=== PATIENT | male | born 1955 | race Caucasian/White ===

== ENCOUNTER → 2018-04-01 | Outpatient (CLI) | payer BC, OTHER ==
[~2018-04-01] MED LIST: CONTRAST GIVEN. MC PRN; IOHEXOL 300 MG/ML 50 ML VIAL. IJ ONE; LIDOCAINE WITH 8.4% SOD BICARB 3 ML DISP.SYRIN. INJ ONE
[2018-04-01 12:25] VITALS: BP 143/73
--- NOTE | 2018-04-01 13:14 | RAD ---
Cervical myelogram, 04/01/2018: History: Cervical radiculopathy Under local anesthesia, aseptic conditions and fluoroscopic guidance a lumbar puncture was performed at the mid L3 level utilizing a 25-gauge Pascale spinal needle. Good clear CSF flow was obtained following which 11 cc of Omnipaque 300 was injected into the thecal sac. The spinal needle was then removed and hemostasis obtained. Appropriate digital imaging was performed with with 12 fluoroscopic spot images recorded. The patient tolerated the procedure well and was sent to CT in good condition. The following findings were delineated on the myelogram: 1. Spinal stimulator leads extend into the posterior aspect of the cervical spinal canal to the left of midline. 2. There are mild anterior and posterior extradural defects from the C3-4 down to the C6-7 levels producing borderline to mild central spinal stenosis at all of these levels. 3. There are mild lateral extradural defects at C6-7, more so on the left. CT of the cervical spine-post myelogram, 04/01/2018: Multidetector CT imaging was performed with multiplanar reconstructions produced. Artifacts arising from the spinal stimulator leads partially degrade image quality. 1. No fracture or dislocation is identified. No destructive bony lesion is seen. There are moderate degenerative changes involving scattered facet joints bilaterally. 2. At C2-3 the central spinal canal and neural foramina are well maintained. The upper end of a spinal stimulator lead lies along the left posterolateral aspect of the thecal sac. 2. At C3-4 there is moderate disc space narrowing with moderate posterior marginal spurring. The thecal sac measures 11 mm in AP dimension at the midline. The spurring is causing moderate bilateral foraminal stenosis, worse on the right. 3. At C4-5 there is also moderate disc space narrowing with moderate marginal spurring. There is borderline narrowing of the thecal sac. Its posterior margin is partially obscured by the stimulator related artifacts, however, the thecal sac measures approximately 10 mm in AP dimension at the midline. There is mild to moderate bilateral foraminal narrowing due to the spurring. 4. At C5-6 there is moderate disc space narrowing with moderate marginal spurring. There appears to be mild narrowing of the thecal sac, although again, its margins are not clearly defined due to artifacts. There is mild to moderate bilateral foraminal encroachment due to spurring. 5. At C6-7 there is also moderate disc space narrowing with moderate posterior spurring. There is narrowing of the thecal sac which measures approximately 8-9 mm in AP dimension at the midline. The spurring is causing moderate right foraminal encroachment and severe left foraminal encroachment at this level. 6. At C7-T1 the central spinal canal and neural foramina appear well maintained. IMPRESSION: 1. Spinal stimulator leads in place extending into the upper cervical spinal canal on the left. 2. Moderate multilevel degenerative change as described above, with mild central spinal stenosis at C5-6 and C6-7 as well as moderate foraminal encroachment at multiple levels, greatest at C6-7. PQRS Compliance Statement: One or more of the following individualized dose reduction techniques were utilized for this examination: 1. Automated exposure control 2. Adjustment of the mA and/or kV according to patient size 3. Use of iterative reconstruction technique
== END | disposition home or self-care (01) ==
LOC: RAD 08:59
PROVIDERS: ATTEND Neurological Surgery
DX: M48.02 Spinal stenosis, cervical region (principal); M47.892 Other spondylosis, cervical region
CPT/HCPCS: 72125; 72240; Q9967

== ENCOUNTER 2018-04-25 06:59 | Observation (INO) | payer BC, OTHER ==
--- NOTE | 2018-04-24 15:20 | PREOP HP ---
DATE OF SERVICE: 04/25/2018 HISTORY OF PRESENT ILLNESS: The patient is a pleasant 63-year-old who notices right-sided neck pain and right greater than left shoulder, arm and hand pain. He notes weakness and numbness in his arms and hands bilaterally. The problem has been present for years, slowly worsening. He relates his pain as a 9/10. Moving his arms or lifting his arms markedly increases pain. He is using extended release morphine as well as Mcadoo. He has had epidural steroid injections and FNA, which helped for a short time. Physical therapy has been done without significant help. I studied him with a myelogram and post-myelogram CT scan. PAST MEDICAL HISTORY: Arthritis, cancer, chest pain, headaches, head or neck injury, hypertension, parathyroid disease, rheumatoid arthritis, stomach/intestinal disease, thyroid disease, diabetes. PAST SURGICAL HISTORY: Hernia repair, deviated septum, cardiac catheterization. FAMILY HISTORY: Cancer, diabetes, and heart problems. SOCIAL HISTORY: Employed. . Never exercises. Denies substance abuse. Current tobacco use. Drinks alcohol 1-2 times per year. ALLERGIES: No known drug allergies. CURRENT MEDICATIONS: Acetaminophen, atorvastatin, aspirin, cyclobenzaprine, diazepam, Mcadoo, insulin, levothyroxine, metformin, morphine, nitroglycerin, omeprazole, pregabalin, sertraline, tamsulosin, Toujeo Solostar, triamcinolone acetonide. REVIEW OF SYSTEMS: A 12-point review of systems was obtained and is noncontributory except that mentioned above. PHYSICAL EXAMINATION: NEUROSURGERY EXAMINATION: GENERAL APPEARANCE: Alert, pleasant, no acute distress. HEAD: Normocephalic and atraumatic. NECK AND THYROID: Gscy-vr-ycqtmpls tenderness with palpation of posterior cervical region. SKIN: Warm and dry. MUSCULOSKELETAL: Cervical paraspinal muscle bulk is normal, restricted range of motion of the cervical spine. Normal range of motion of the upper extremities bilaterally. EXTREMITIES: No clubbing, cyanosis or edema. NEUROLOGIC: Alert and oriented x 3, normal recent and remote memory. Strength 5/5 in bilateral upper and lower extremities, sensory was intact to light touch in the upper and lower extremities. Reflexes are present and symmetric in the upper and lower extremities bilaterally, normal gait. IMAGING: Reviewed. I reviewed a cervical myelogram and post-myelogram CT scan and compared this with a cervical MRI scan. There are a number of abnormalities at C5-C6. There is moderate right and severe left neural foraminal narrowing. At C6-C7, there is moderate right foraminal and severe left foraminal narrowing. At C3-C4, there is moderate bilateral foraminal narrowing, worse on the right side. ASSESSMENT: Other spondylosis with radiculopathy, cervical region. PLAN: The patient has multilevel disease. At this point, I feel the best course would be to focus on C5-C6 and C6-C7. I would perform a 2-level anterior cervical microdiskectomy and fusion at these levels. It may be that in the future, he will require surgery at C3-C4. I discussed with him the surgery and the risks involved including injury to the soft tissue structures of the neck, sequelae of injury to each. I spoke about the injury to esophagus as well as technique of the operation. I discussed the use of interbody fusion cages and plate. I spoke about the expected postoperative course. He understands. He would like to go ahead. We will make the arrangements. DIANE VELASQUEZ MD DR: NAYELY/nika JOB#: [id number] / [id number]
[~2018-04-25] VITALS: Ht 157.5 cm; Wt 129.3 kg
[2018-04-25] VITALS (10 sets, daily range): BP systolic 126–164; BP diastolic 62–90
[~2018-04-25 06:59] MED LIST changes: +ATORVASTATIN CA80 MG PO; +BACITRACIN 50,000 UNIT in IV NORMAL SALINE 1000ML BAG 1,000 ML IRR ONE; -CONTRAST GIVEN. MC PRN; +CYCL5TAB PO; +DESFLURANE 61 TO 120 MINUTES IH ONE; +DEXAMETHASONE SOD PHOS 20 MG/5 ML VIAL. ONE; +DIAZ5TAB4 PO; +GELATIN SPONGE SIZE 100. ONE; +HYDR-2762 PO; +INSU100V11 IJ; +INSU300I SQ; -IOHEXOL 300 MG/ML 50 ML VIAL. IJ ONE; +LEVO150T5 PO; -LIDOCAINE WITH 8.4% SOD BICARB 3 ML DISP.SYRIN. INJ ONE; +METF100010 PO; +MORP15TA PO; +OMEP40CA5 PO; +ONDANSETRON PF 4 MG/2 ML VIAL. ONE; +PHENYLEPHRINE 10 MG/ML VIAL. ONE; +PREG50CA PO; +PROPOFOL 0 ML IV ONE; +PROPOFOL 50 ML IV ONE; +QUET100T4 PO; +REMIFENTANIL 2 MG VIAL. IV ONE; +ROCURONIUM 50 MG/5 ML VIAL. ONE; +TAMS0.4C2 PO; +THROMBIN TOPICAL 20,000 UNIT SPRAY.SYRN KIT TP ONE; +TRIA80OI TP
[2018-04-25] MEDS ORDERED: PROCHLORPERAZINE 10 MG/2 ML VIAL. IV PRN (07:00)
[2018-04-25] MEDS ORDERED: LIDOCAINE 1% PF 2 ML VIAL. ID PRN (07:00)
[2018-04-25] MEDS ORDERED: BUPIVAC MPF-EPI 0.5%-1:200000 30 ML VIAL. INJ ONE (07:00)
[2018-04-25] MEDS ORDERED: ONDANSETRON PF 4 MG/2 ML VIAL. IV PRN ×2 (07:00→13:30)
[2018-04-25] MEDS ORDERED: MORPHINE SULFATE 2 MG/ML VIAL. IV PRN (07:00)
[2018-04-25] MEDS ORDERED: fentaNYL PF VIAL 100 MCG/2 ML VIAL IV PRN ×2 (07:00→13:30)
[2018-04-25] MEDS ORDERED: HYDROmorphone 2 MG/ML VIAL IV PRN (07:00)
[2018-04-25] MEDS ORDERED: INSU300I SQ (07:56)
[2018-04-25] MEDS ORDERED: INSU100C4 SQ (07:58)
[2018-04-25] MEDS: IV RINGERS,LACTATED 1000ML 1,000 ML IV SCH ×2 (08:00→13:51)
[2018-04-25] MEDS ORDERED: fentaNYL PF VIAL 100 MCG/2 ML VIAL ONE (08:30)
[2018-04-25] MEDS ORDERED: MIDAZOLAM HCL/PF 2 MG/2 ML VIAL. ONE (08:30)
[2018-04-25] MEDS ORDERED: ceFAZolin SODIUM 1 GM VIAL ONE ×2 (09:46)
[2018-04-25] MEDS ORDERED: MINERAL OIL/PETROLATUM,WHITE OPHTH OINT 3.5GM TUBE. ONE (10:00)
[2018-04-25] MEDS ORDERED: PROPOFOL 50 ML IV ONE ×2 (10:16→12:21)
[2018-04-25] MEDS ORDERED: PROPOFOL 20 ML IV ONE ×2 (10:16→12:52)
[2018-04-25] MEDS ORDERED: ePHEDrine PF IN SALINE 50 MG/5 ML DISP.SYRIN IV ONE (10:37)
[2018-04-25] MEDS ORDERED: REMIFENTANIL 1 MG VIAL. IV ONE ×2 (11:30→12:33)
[2018-04-25] MEDS ORDERED: DESFLURANE > 120 MINUTES IH ONE (12:55)
[2018-04-25] MEDS ORDERED: HYDROcodone/APAP 7.5/325MG 1 TAB TABLET PO PRN ×3 (13:15→13:30)
[2018-04-25] MEDS: POTASSIUM CL 20MEQ D5-0.45NACL 1,000 ML IV SCH (13:16)
[2018-04-25] MEDS ORDERED: MORPHINE SULFATE 4 MG/ML VIAL. ONE (13:22)
[2018-04-25] MEDS ORDERED: ACETAMINOPHEN 325 MG TABLET. PO PRN (13:30)
[2018-04-25] MEDS ORDERED: diphenhydrAMINE 50 MG/ML VIAL IV PRN (13:30)
[2018-04-25] MEDS ORDERED: CALCIUM CARBONATE 500 MG TAB.CHEW PO PRN (13:30)
[2018-04-25] MEDS ORDERED: MAG HYDROX/ALUMINUM HYD/SIMETH 30 ML ORAL.SUSP PO PRN (13:30)
[2018-04-25] MEDS ORDERED: diphenhydrAMINE HCL 25 MG CAPSULE PO PRN (13:30)
[2018-04-25] MEDS ORDERED: MAGNESIUM HYDROXIDE 2,400 MG/30 ML ORAL.SUSP. PO PRN (13:30)
[2018-04-25] MEDS ORDERED: 0.9 % SODIUM CHLORIDE 10 ML DISP.SYRIN. IV PRN (13:30)
[2018-04-25] MEDS: fentaNYL PF VIAL 100 MCG/2 ML VIAL IV PRN ×2 (13:42→14:13)
[2018-04-25] MEDS ORDERED: MORPHINE SULFATE 4 MG/ML VIAL. IM PRN (13:45)
[2018-04-25] MEDS ORDERED: MORPHINE SULFATE 4 MG/ML VIAL. IV PRN (14:00)
[2018-04-25] MEDS ORDERED: ceFAZolin SODIUM 1 GM in IV DEXTROSE 5% 50 ML IV SCH (14:00)
[2018-04-25] MEDS ORDERED: INSULIN GLARGINE 300 UNITS/3 ML INSULN.PEN. SQ SCH (15:00)
[2018-04-25] MEDS: PREGABALIN 50 MG CAPSULE PO SCH ×2 (16:46→21:42)
[2018-04-25] MEDS: ceFAZolin SODIUM IV Push 1 GM VIAL. IVP SCH (16:57)
[2018-04-25] MEDS: TRIAMCINOLONE ACETONIDE 0.1% TOPICAL OINTMENT 15GM TUBE. TP SCH (21:00)
[2018-04-25] MEDS ORDERED: TRIAMCINOLONE ACETONIDE 0.1% TOPICAL OINTMENT 15GM TUBE. TP SCH (21:00)
[2018-04-25] MEDS ORDERED: ATORVASTATIN CALCIUM 40 MG TABLET. PO SCH (21:00)
[2018-04-25] MEDS: CYCLOBENZAPRINE 10 MG TABLET. PO SCH (21:41)
[2018-04-25] MEDS: DOCUSATE SODIUM 100 MG CAPSULE. PO SCH (21:42)
[2018-04-25] MEDS: diazePAM 5 MG TABLET PO SCH (21:42)
[2018-04-25] MEDS: MORPHINE ER 15 MG TABLET.ER PO SCH (21:42)
[2018-04-26] MEDS: ceFAZolin SODIUM IV Push 1 GM VIAL. IVP SCH ×2 (01:00→07:49)
[2018-04-26] MEDS: POTASSIUM CL 20MEQ D5-0.45NACL 1,000 ML IV SCH (02:36)
[2018-04-26 06:23] VITALS: BP 127/69
[2018-04-26] MEDS ORDERED: LEVOTHYROXINE 150 MCG TABLET PO SCH (07:00)
[2018-04-26] MEDS ORDERED: PANTOPRAZOLE 40 MG TABLET.DR. PO SCH (07:30)
[2018-04-26] MEDS: CYCLOBENZAPRINE 10 MG TABLET. PO SCH (07:47)
[2018-04-26] MEDS: diazePAM 5 MG TABLET PO SCH (07:47)
[2018-04-26] MEDS: PREGABALIN 50 MG CAPSULE PO SCH (07:47)
[2018-04-26] MEDS: DOCUSATE SODIUM 100 MG CAPSULE. PO SCH (07:47)
[2018-04-26] MEDS: MORPHINE ER 15 MG TABLET.ER PO SCH (07:48)
[2018-04-26] MEDS ORDERED: INSULIN GLARGINE 300 UNITS/3 ML INSULN.PEN. SQ SCH (08:00)
[2018-04-26] MEDS ORDERED: INSULIN LISPRO 300 UNITS/3 ML INSULN.PEN. SQ SCH (08:00)
[2018-04-26] MEDS ORDERED: metFORMIN XR 500 MG TAB.ER.24H PO SCH (08:00)
[2018-04-26] MEDS: TRIAMCINOLONE ACETONIDE 0.1% TOPICAL OINTMENT 15GM TUBE. TP SCH (08:07)
[2018-04-26] MEDS ORDERED: TAMSULOSIN 0.4 MG CAP.ER.24H. PO SCH (09:00)
--- NOTE | 2018-04-26 09:39 | DISCH ---
DISCHARGE INSTRUCTIONS Condition on Discharge Condition on Discharge: Stable Activity After Discharge Activity Instructions for Disc: Activity as tolerated, Avoid exertion Other activity instructions: no driving for a week Bathing Instructions: Shower-keep dressing dry Lifting Instructions after Dis: No heavy lifting, No pulling or pushing, Do not lift >10 pounds Diet after Discharge Additional Diet Restrictions: resume home diet Wound Incision Care Wound/Incision Care: Ice to area for comfort Other wound/incision instructi: may remove dressing tomorrow if dry then may shower- no soaking Contacting the after DC Call your doctor for: Concerns you may have Follow-Up Follow up with: Dr. Velasquez's nurse in 2 weeks [phone] DIANE VELASQUEZ MD Apr 26, 2018 09:39
--- NOTE | 2018-04-26 09:52 | PDOC ---
PROGRESS NOTES Subjective Subjective POD #1 up in chair significant improvement in shoulder and arm symptoms wants to go home Objective Objective Vital Signs Date Time Temp Pulse Resp B/P (MAP) Pulse Ox O2 Delivery O2 Flow Rate FiO2 04/26/18 07:50 Room Air 04/26/18 06:23 98.0 70 20 127/69 (88) 95 98.0 04/25/18 21:42 2.0 Intake and Output 04/26/18 07:00 Intake Total 850 ml Output Total 25 ml Balance 825 ml Intake Oral 800 ml IV Total 50 ml Output Estimated Blood Loss 25 ml # Voids 8 Physical Exam General: Alert, Oriented X3, Cooperative, No acute distress, Other (Voice clear ) MUSCULOSKELETAL: Other (SON) Skin: Other (dressing dry and intact, soft collar on) Plan Plan of Care dc home f/u 2 weeks Comment Review of Relevant I have reviewed the following items carlita (where applicable) has been applied. Labs Laboratory Tests Test 04/25/18 07:47 04/25/18 13:37 04/25/18 16:48 04/25/18 21:38 Glucose (Fingerstick) 154 mg/dL (70-99) 147 mg/dL (70-99) 146 mg/dL (70-99) 158 mg/dL (70-99) Test 04/26/18 06:03 Glucose (Fingerstick) 139 mg/dL (70-99) Laboratory Tests Test 04/25/18 13:37 04/25/18 16:48 04/25/18 21:38 04/26/18 06:03 Glucose (Fingerstick) 147 mg/dL (70-99) 146 mg/dL (70-99) 158 mg/dL (70-99) 139 mg/dL (70-99) Medications Current Medications Bacitracin [id number] unit/Sodium Chloride 1,000 ml @ 1,000 mls/hr 1X ONCE IRR Last administered on 04/25/18at 09:57; Start 04/25/18 at 06:00; Stop 04/25/18 at 06:59; Status DC Ondansetron HCl (Zofran) 4 mg PRN Q6HRS PRN IV NAUSEA/VOMITING; Start 04/25/18 at 07:00; Stop 04/25/18 at 18:00; Status DC Fentanyl Citrate (Fentanyl 2ml Vial) 25 mcg PRN Q5MIN PRN IV MILD PAIN; Start 04/25/18 at 07:00; Stop 04/25/18 at 18:00; Status DC Fentanyl Citrate (Fentanyl 2ml Vial) 50 mcg PRN Q5MIN PRN IV MODERATE TO SEVERE PAIN Last administered on 04/25/18at 14:13; Start 04/25/18 at 07:00; Stop 04/25/18 at 18:00; Status DC Morphine Sulfate (Morphine Sulfate) 1 mg PRN Q10MIN PRN IV SEVERE PAIN; Start 04/25/18 at 07:00; Stop 04/25/18 at 18:00; Status DC Ringer's Solution 1,000 ml @ 30 mls/hr Q24H IV Last administered on 04/25/18at 13:51; Start 04/25/18 at 07:00; Stop 04/25/18 at 18:59; Status DC Lidocaine HCl (Xylocaine-Mpf 1% 2ml Vial) 2 ml PRN 1X PRN ID IV START; Start at 07:00; Stop 04/25/18 at 18:00; Status DC Hydromorphone HCl (Dilaudid) 0.5 mg PRN Q10MIN PRN IV SEV PAIN, Second choice; Start 04/25/18 at 07:00; Stop 04/25/18 at 18:00; Status DC Prochlorperazine Edisylate (Compazine) 5 mg PACU PRN PRN IV NAUSEA, MRX1 Last administered on 04/25/18at 13:42; Start 04/25/18 at 07:00; Stop 04/25/18 at 18:00 ; Status DC Cefazolin Sodium/ Dextrose 50 ml @ 100 mls/hr 1X PREOP PRN IV PRIOR TO PROCEDURE Last administered on 04/25/18at 09:39; Start 04/25/18 at 06:00; Stop at 18:00; Status DC Remifentanil HCl (Ultiva) 2 mg STK-MED ONCE IV ; Start 04/25/18 at 06:44; Stop 04/25/18 at 06:45; Status DC Rocuronium [place] (Zemuron) 50 mg STK-MED ONCE .ROUTE ; Start 04/25/18 at 06:44 ; Stop 9/13/18 at 06:45; Status DC Desflurane (Suprane) 60 ml STK-MED ONCE IH ; Start 04/25/18 at 06:45; Stop 04/25 at 06:46; Status DC Propofol 50 ml @ As Directed STK-MED ONCE IV ; Start 04/25/18 at 06:45; Stop at 06:46; Status DC Propofol 0 ml @ As Directed STK-MED ONCE IV ; Start 04/25/18 at 06:45; Stop at 06:46; Status DC Dexamethasone Sodium Phosphate (Decadron) 20 mg STK-MED ONCE .ROUTE ; Start at 06:45; Stop 04/25/18 at 06:46; Status DC Ondansetron HCl (Zofran) 4 mg STK-MED ONCE .ROUTE ; Start 04/25/18 at 06:45; Stop 04/25/18 at 06:46; Status DC Phenylephrine HCl (Jah-Synephrine Inj) 10 mg STK-MED ONCE .ROUTE ; Start at 06:45; Stop 04/25/18 at 06:46; Status DC Phenylephrine HCl (Jah-Synephrine Inj) 10 mg STK-MED ONCE .ROUTE ; Start at 06:45; Stop 04/25/18 at 06:46; Status DC Gelatin (Gelfoam Size 100) 1 each STK-MED ONCE .ROUTE Last administered on at 09:57; Start 04/25/18 at 05:49; Stop 04/25/18 at 06:50; Status DC Thrombin 20,000 unit STK-MED ONCE TP Last administered on 04/25/18at 09:57; Start 04/25/18 at 05:49; Stop 04/25/18 at 06:50; Status DC Bupivacaine HCl/ Epinephrine Bitart (Sensorcain-Mpf Epi 0.5%-1:[id number]) 30 ml 1X ONCE INJ Last administered on 04/25/18at 09:57; Start 04/25/18 at 07:00; Stop 04/25/18 at 07:01; Status DC Midazolam HCl (Versed) 2 mg STK-MED ONCE .ROUTE ; Start 04/25/18 at 08:30; Stop 04/25/18 at 08:31; Status DC Fentanyl Citrate (Fentanyl 2ml Vial) 100 mcg STK-MED ONCE .ROUTE ; Start at 08:30; Stop 04/25/18 at 08:31; Status DC Cefazolin Sodium (Ancef) 1 gm STK-MED ONCE .ROUTE ; Start 04/25/18 at 09:46; Stop 04/25/18 at 09:47; Status DC Cefazolin Sodium (Ancef) 1 gm STK-MED ONCE .ROUTE ; Start 04/25/18 at 09:46; Stop 04/25/18 at 09:47; Status DC Multi-Ingred Cream/Lotion/Oil/ Oint (Artificial Tears Eye Ointment) 7 lianna STK- MED ONCE .ROUTE ; Start 04/25/18 at 10:00; Stop 04/25/18 at 10:01; Status DC Propofol 20 ml @ As Directed STK-MED ONCE IV ; Start 04/25/18 at 10:16; Stop at 10:17; Status DC Propofol 50 ml @ As Directed STK-MED ONCE IV ; Start 04/25/18 at 10:16; Stop at 10:17; Status DC Ephedrine Sulfate (ePHEDrine PF IN SALINE SYRINGE) 50 mg STK-MED ONCE IV ; Start 04/25/18 at 10:37; Stop 04/25/18 at 10:38; Status DC Remifentanil HCl (Ultiva) 1 mg STK-MED ONCE IV ; Start 04/25/18 at 11:30; Stop 04/25/18 at 11:31; Status DC Propofol 50 ml @ As Directed STK-MED ONCE IV ; Start 04/25/18 at 12:21; Stop at 12:22; Status DC Remifentanil HCl (Ultiva) 1 mg STK-MED ONCE IV ; Start 04/25/18 at 12:33; Stop 04/25/18 at 12:34; Status DC Propofol 20 ml @ As Directed STK-MED ONCE IV ; Start 04/25/18 at 12:52; Stop at 12:53; Status DC Desflurane (Suprane) 90 ml STK-MED ONCE IH ; Start 04/25/18 at 12:55; Stop 04/25 at 12:56; Status DC Diazepam (Valium) 5 mg BID PO Last administered on 04/26/18at 07:47; Start 04/25 at 21:00 Acetaminophen/ Hydrocodone Bitart (Lortab 7.5/325) 1 tab PRN Q6HRS PRN PO MODERATE PAIN Last administered on 04/25/18at 16:46; Start 04/25/18 at 13:15 Morphine Sulfate (Ms Contin) 15 mg BID PO Last administered on 04/26/18at 07:48 ; Start 04/25/18 at 21:00 Pregabalin (Lyrica) 50 mg TID PO Last administered on 04/26/18at 07:47; Start at 14:00 Tamsulosin HCl (Flomax) 0.4 mg DAILY PO ; Start 04/26/18 at 09:00 Atorvastatin Calcium (Lipitor) 80 mg QHS PO Last administered on 04/25/18at 21: 42; Start 04/25/18 at 21:00 Cyclobenzaprine HCl (Flexeril) 5 mg BID PO Last administered on 04/26/18at 07:47 ; Start 04/25/18 at 21:00 Insulin Human Lispro (HumaLOG) 36 units DAILYWBKFT SQ ; Start 04/26/18 at 08:00 Insulin Glargine (Lantus) 45 units DAILY SQ ; Start 04/25/18 at 15:00; Stop at 15:29; Status DC Levothyroxine Sodium (Synthroid) 150 mcg DAILY07 PO Last administered on at 06:05; Start 04/26/18 at 07:00 Metformin HCl (Glucophage Xr) 1,000 mg DAILYWBKFT PO ; Start 04/26/18 at 08:00; Status Cancel Pantoprazole Sodium (Protonix) 40 mg DAILYAC PO Last administered on 04/26/18at 07:48; Start 04/26/18 at 07:30 Triamcinolone Acetonide (Kenalog) 1 lianna BID TP ; Start 04/25/18 at 21:00; Status Cancel Morphine Sulfate (Morphine Sulfate) 4 mg STK-MED ONCE .ROUTE ; Start 04/25/18 at 13:22; Stop 04/25/18 at 13:23; Status DC Morphine Sulfate (Morphine Sulfate) 4 mg PRN Q10MIN PRN IM PAIN; Start at 13:45; Stop 04/25/18 at 13:47; Status DC Acetaminophen (Tylenol) 650 mg PRN Q6HRS PRN PO MILD PAIN / TEMP; Start at 13:30 Al Hydroxide/Mg Hydroxide (Mylanta Plus Xs) 30 ml PRN Q3HRS PRN PO HEARTBURN / GAS; Start 04/25/18 at 13:30 Calcium Carbonate/ Glycine (Tums) 500 mg PRN Q3HRS PRN PO INDIGESTION; Start at 13:30 Diphenhydramine HCl (Benadryl) 25 mg PRN Q6HRS PRN PO ITCHING; Start 04/25/18 at 13:30 Diphenhydramine HCl (Benadryl) 25 mg PRN Q6HRS PRN IV ITCHING; Start 04/25/18 at 13:30 Sodium Chloride (Normal Saline Flush) 3 ml QSHIFT PRN IV AFTER MEDS AND BLOOD DRAWS; Start 04/25/18 at 13:30 Potassium Chloride/Dextrose/ Sod Cl 1,000 ml @ 75 mls/hr [id number] IV ; Start at 13:16 Docusate Sodium (Colace) 100 mg BID PO Last administered on 04/26/18at 07:47; Start 04/25/18 at 21:00 Magnesium Hydroxide (Milk Of Magnesia) 2,400 mg PRN Q12HR PRN PO CONSTIPATION; Start 04/25/18 at 13:30 Ondansetron HCl (Zofran) 4 mg PRN Q6HRS PRN IV NAUESA, 1ST CHOICE; Start at 13:30 Cefazolin Sodium 1 gm/Dextrose 50 ml @ 100 mls/hr Q8HRS IV ; Start 04/25/18 at 14:00; Stop 04/26/18 at 06:29; Status UNV Acetaminophen/ Hydrocodone Bitart (Lortab 7.5/325) 1 tab PRN Q6HRS PRN PO MODERATE PAIN; Start 04/25/18 at 13:30 Acetaminophen/ Hydrocodone Bitart (Lortab 7.5/325) 2 tab PRN Q6HRS PRN PO SEVERE PAIN; Start 04/25/18 at 13:30 Fentanyl Citrate (Fentanyl 2ml Vial) 50 mcg PRN Q2HR PRN IV SEVERE PAIN; Start 04/25/18 at 13:30 Morphine Sulfate (Morphine Sulfate) 4 mg PRN Q10MIN PRN IV PAIN Last administered on 04/25/18at 13:48; Start 04/25/18 at 14:00; Stop 04/25/18 at 18:00 ; Status DC Cefazolin Sodium (Ancef) 1 gm Q8H IVP Last administered on 04/26/18at 07:49; Start 04/25/18 at 17:00; Stop 04/26/18 at 09:01; Status DC Triamcinolone Acetonide (Kenalog) 1 lianna BID TP ; Start 04/25/18 at 21:00 Insulin Glargine (Lantus) 45 units DAILYWBKFT SQ Last administered on at 08:00; Start 04/26/18 at 08:00 Metformin HCl (Glucophage) 1,000 mg BIDWMEALS PO Last administered on at 07:46; Start 04/25/18 at 17:30 Active Scripts Active Reported Novolog (Insulin Aspart) 100 Unit/1 Ml Cartridge 36 Unit SQ DAILY Toujeo Solostar (Insulin Glargine,Hum.rec.anlog) 300 Unit/1 Ml Insuln.pen 56 Unit SQ DAILY Triamcinolone Acetonide 80 Gm Oint...g. 1 Lianna TP BID Tamsulosin Hcl 0.4 Mg Cap.er.24h 1 Cap PO DAILY Lyrica (Pregabalin) 50 Mg Capsule 1 Cap PO TID Omeprazole 40 Mg Capsule.dr 1 Cap PO DAILY Morphine Sulfate 15 Mg Tablet 1 Tab PO BID Metformin Hcl Er (Metformin Hcl) 1,000 Mg Tab.er.24 1,000 Mg PO DAILYWBKFT Levothyroxine Sodium 150 Mcg Tablet 1 Tab PO DAILY Hydrocodone-Apap 7.5-325 (Hydrocodone Bit/Acetaminophen) 1 Each Tablet 1 Tab PO PRN Q6HRS PRN Diazepam 5 Mg Tablet 5 Mg PO BID Cyclobenzaprine Hcl 5 Mg Tablet 1 Tab PO QHS Atorvastatin Calcium 80 Mg Tablet 1 Tab PO DAILY Vitals/I & O Vital Sign - Last 24 Hours 04/25/18 04/25/18 04/25/18 04/25/18 13:35 13:35 13:42 13:48 Temp 98.0 98.0 Pulse 96 Resp 20 20 20 B/P (MAP) 168/82 Pulse Ox 97 96 O2 Delivery Simple Mask Mask Simple Mask Simple Mask O2 Flow Rate 10 10 10.0 10.0 04/25/18 04/25/18 04/25/18 04/25/18 13:50 14:05 14:13 14:20 Pulse 96 87 93 Resp 20 20 20 20 B/P (MAP) 153/86 156/92 163/77 Pulse Ox 90 90 96 89 O2 Delivery Nasal Cannula Nasal Cannula Nasal Cannula O2 Flow Rate 2 2 2.0 2 04/25/18 04/25/18 04/25/18 04/25/18 14:35 14:50 15:10 15:10 Temp 98.1 98.1 Pulse 92 98 92 Resp 20 20 20 B/P (MAP) 192/101 163/77 147/74 Pulse Ox 92 92 93 O2 Delivery Nasal Cannula Nasal Cannula Nasal Cannula Nasal Cannula O2 Flow Rate 4 4 3 3 04/25/18 04/25/18 04/25/18 04/25/18 15:20 15:30 15:40 15:45 Temp 98.1 98.1 Pulse 89 87 84 Resp 16 20 20 B/P (MAP) 164/87 (112) 140/90 (107) 158/84 (108) Pulse Ox 92 92 92 O2 Delivery Nasal Cannula Nasal Cannula Nasal Cannula Nasal Cannula O2 Flow Rate 2.0 2.0 3.0 2.0 04/25/18 04/25/18 04/25/18 04/25/18 16:03 16:30 16:46 17:30 Pulse 88 80 93 Resp 20 16 18 B/P (MAP) 141/90 (107) 163/62 (95) 156/73 (100) Pulse Ox 94 95 94 O2 Delivery Nasal Cannula Room Air Room Air Room Air 04/25/18 04/25/18 04/25/18 04/25/18 18:26 19:00 20:00 20:01 Temp 98.8 98.8 Pulse 98 93 93 Resp 18 20 20 B/P (MAP) 138/72 (94) 133/78 (96) 126/72 (90) Pulse Ox 93 O2 Delivery Room Air Room Air Nasal Cannula O2 Flow Rate 2.0 9/04/25/18 04/26/18 04/26/18 21:42 23:03 01:35 06:23 Temp 98.0 98.0 Pulse 93 70 Resp 20 18 20 B/P (MAP) 130/84 (99) 127/69 (88) Pulse Ox 93 93 93 95 O2 Delivery Nasal Cannula Nasal Cannula Room Air O2 Flow Rate 2.0 04/26/18 04/26/18 07:48 07:50 O2 Delivery Room Air Room Air Intake and Output 04/25/18 04/25/18 04/26/18 15:00 23:00 07:00 Intake Total 50 ml 800 ml Output Total 25 ml Balance 25 ml 800 ml DIANE VELASQUEZ MD Apr 26, 2018 09:52
--- NOTE | 2018-04-28 15:06 | PATHOLOGY ---
[facility] Accession Number: [id number] . 01 Material submitted: . CERVICAL DISC . 01 Clinician provided ICD-10: M47.22 . 01 Clinical history: . Cervical spondylosis and radiculopathy . 02 Diagnosis: "Cervical disc", removal: - Fragments of fibrocartilage with degenerative changes. - Scant fragment of unremarkable bone . . (SKM:mml; 04/26/18) [facility]/04/26/2018 . 02 Electronically signed: . Mitchell Gaspar MD, Pathologist NPI- [id number] . 01 Gross description: . Received in formalin labeled "Philip Joshua, cervical disc," are several pieces of glistening, fibrous tissue measuring 2.6 x 2.0 x 0.4 cm in aggregate dimensions, containing small fragments of possible bone. The tissue submitted entirely in cassette A1, following decalcification. (TSD; 04/25/2018) TOB/TOB . 02 Pathologist provided ICD-10: M50.30 . 02 CPT . 418542, [id number] Specimen Comment: A courtesy copy of this report has been sent to Specimen Comment: [phone], . Specimen Comment: Report sent to and Performed at: 01 [facility] [address] [facility] [address], [place] [id number] MD Forrest Vang MD Phone: [phone] Performed at: 02 [facility] [address] [place], [place] [id number] MD Eric Lowe MD Phone: [phone]
--- NOTE | 2018-04-28 15:48 | OP ---
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 POSTOPERATIVE DIAGNOSES: Lateral recess stenosis with disk bulging and radiculopathy, C5-C6, C6-C7. OPERATION PERFORMED: Anterior cervical microdiskectomy C6-C7, C5-C6; anterior cervical interbody fusion with allograft and autograft bone, C6-C7, C5-C6; anterior cervical plate C5-6-7. The operation was done with multimodality electrophysiologic monitoring, fluoroscopy, microscopy and microscopic dissection. PHYSIOLOGY TEACHER: CHILANGO Woods assisted with the surgery. She assisted with the exposure, the two level microdecompression as well as interbody fusion and plating as well as closure. OPERATIVE INDICATIONS: The patient is a pleasant 63-year-old man who developed severe intractable neck and right greater than left arm pain along with weakness and numbness in his hands and forearms. On imaging studies, he had the above-mentioned findings along with lateral foraminal narrowing at C3-C4. I felt the problems at C5-C6 and C6-C7 were primarily responsible for his pain and I recommended surgery for him. I discussed anterior neck surgery and I discussed the technique as well as the expected postoperative course. I spoke about the risks of the operation and outlined the soft tissue structures of the neck and sequelae of injury to each. I also explained that in the future he may require further surgery for C3-C4 foraminal narrowing if his problems are not completely addressed by the anterior operation at C5-C6 and C6-C7. He understood the surgery and the risks. He wished to go ahead. DESCRIPTION OF PROCEDURE: Following general endotracheal anesthesia, the patient was positioned supine on the operating room table. The head was in a neutral position. The anterior cervical region was then prepped and draped in the standard fashion. ALPESH hose and AV impulse boots were applied for DVT prophylaxis. The microscope was draped. Fluoroscopy was draped and brought into field and monitoring was established. Ancef 2 grams was given less than 1 hour prior to the initiation of the surgery. Fluoroscopic images were obtained preoperatively. We were able to see down to C5-C6 and I felt that we had adequate exposure to perform the surgery. An incision was made from the midline around to the right side in the skin crease skin. I dissected down to subcutaneous tissue and I dissected around the medial aspect of the sternocleidomastoid and carotid artery sheath down the anterior cervical vertebral body. I reflected the trachea and esophagus contralaterally and I placed [place] retractors wedged in the longus colli muscle at C6-C7 and I confirmed my position fluoroscopically. I brought in the microscope and I incised the anterior annulus with a #11 blade. I performed diskectomy with pituitary rongeurs. I drilled much of the spurring and I saved this bone for mixing with the allograft bone. I drilled the posterior spurring and I used the endplate scraper and scraped away cartilaginous endplate and developed an exposure posteriorly. I used the 1 and 2 mm micro Kerrison's to open the annulus and the posterior ligament, and I also used the arachnoid knife to help with the ligamentous opening. I worked laterally bilaterally and assured myself that the region was quite free and open and then I tapped into position a 6 mm interbody fusion cage, which was packed with allograft and autograft bone. I then moved up to C5-C6, moving the retractor to this location. I performed the identical operation at C5-C6. At this region, there was subligamentous disk herniation. I removed this material. I again worked laterally bilaterally and decompressed the entire region, again scraping away cartilaginous endplate and preparing for fusion. At this level, I placed a 7 mm interbody fusion cage, which again was packed with allograft and autograft bone. The cages were not placed until we had perfect hemostasis and the wound had been copiously irrigated. Once the cages were in place, I placed an anterior plate and I placed superior and inferior 14 mm screws first which were locked followed by the remaining screws. Fluoroscopic images looked quite good. I removed the retractor and explored carefully as well as irrigated. Hemostasis was perfect. I closed the wound in layers with absorbable suture and skin was closed with 4-0 subcuticular stitch. The operation went very well and the patient was taken uneventfully to recovery room in excellent condition. I was quite pleased with the surgery. DIANE VELASQUEZ MD DR: NAYELY/nika JOB#: [id number] / [id number]
== END 2018-04-26 10:45 | disposition home or self-care (01) ==
LOC: SURG 06:59 → 4 SOUTHEST 14:23
PROVIDERS: ADMIT Neurological Surgery; ATTEND Neurological Surgery
DX: M50.122 Cervical disc disorder at C5-C6 level with radiculopathy (principal); M50.123 Cervical disc disorder at C6-C7 level with radiculopathy; M47.812 Spondylosis without myelopathy or radiculopathy, cervical region; M48.02 Spinal stenosis, cervical region; E11.9 Type 2 diabetes mellitus without complications; I10 Essential (primary) hypertension; M06.9 Rheumatoid arthritis, unspecified; Z72.0 Tobacco use; Z79.4 Long term (current) use of insulin
CPT/HCPCS: 20931; 20936; 22551; 22552; 22853; 76000; 82962; 88304; 88311; 96372; 96374; 96376; 97162; 97530; A7015; C1713; C1821; G0378; G0379; J0690; J0780; J1100; J1815; J2250; J2270; J2405; J2704; J3010; J3490; J7030; J7120

== ENCOUNTER → 2018-05-10 | Outpatient (CLI) | payer BC, OTHER ==
[2018-04-26 06:23] VITALS: BP 127/69
[~2018-05-10] MED LIST changes: -BACITRACIN 50,000 UNIT in IV NORMAL SALINE 1000ML BAG 1,000 ML IRR ONE; -DESFLURANE 61 TO 120 MINUTES IH ONE; -DEXAMETHASONE SOD PHOS 20 MG/5 ML VIAL. ONE; -GELATIN SPONGE SIZE 100. ONE; +INSU100C4 SQ; -ONDANSETRON PF 4 MG/2 ML VIAL. ONE; -PHENYLEPHRINE 10 MG/ML VIAL. ONE; -PROPOFOL 0 ML IV ONE; -PROPOFOL 50 ML IV ONE; -REMIFENTANIL 2 MG VIAL. IV ONE; -ROCURONIUM 50 MG/5 ML VIAL. ONE; -THROMBIN TOPICAL 20,000 UNIT SPRAY.SYRN KIT TP ONE
--- NOTE | 2018-05-11 09:44 | KCIC ---
Examination: 3 views of the cervical spine HISTORY: History of pain when swallowing COMPARISON: None available. FINDINGS: There is straightening of normal cervical lordosis. There is moderate intervertebral disc height loss identified at C3-C4, C4-C5 vertebral levels. Anterior cervical fusion hardware identified at C5, C6, C7 vertebral levels. Spinal stimulator leads project in the cervical spine at the level of C3. No evidence of prevertebral soft tissue swelling. The lateral masses of C1 are aligned with C2 vertebra. The C2 dens appears intact. IMPRESSION: Moderate degenerative changes cervical spine. Postsurgical changes identified in the cervical spine. Electronically signed by: Ramu Colón MD (05/11/2018 9:40 AM) [facility]
== END | disposition home or self-care (01) ==
LOC: KCIC 15:30
PROVIDERS: ATTEND Neurological Surgery
DX: M47.892 Other spondylosis, cervical region (principal); I10 Essential (primary) hypertension; E11.9 Type 2 diabetes mellitus without complications; Z98.890 Other specified postprocedural states; Z79.4 Long term (current) use of insulin
CPT/HCPCS: 72040

== ENCOUNTER → 2018-06-18 | Outpatient (CLI) | payer BC, OTHER ==
--- NOTE | 2018-06-18 15:44 | KCIC ---
3 view cervical spine series Clinical indications: Follow-up after cervical fusion. Difficulty swallowing. COMPARISON: May 10, 2018. FINDINGS: Again seen is an anterior cervical fusion from C5 through C6 and C7. Position of the surgical hardware and alignment is unchanged. Again seen is a posterior spinal canal stimulator device. It is unchanged in position. No acute fracture or discitis or osteolytic process or prevertebral soft tissue swelling is evident. There is moderate degenerative disc space narrowing and mild degenerative endplate spurring at C4-5 which is stable. There is mild degenerative disc space narrowing and mild degenerative endplate spurring at C3-4 which is stable. IMPRESSION: Stable anterior cervical fusion. Electronically signed by: Will Lea MD (06/18/2018 3:41 PM) [facility] [place]
== END | disposition home or self-care (01) ==
LOC: KCIC 14:24
PROVIDERS: ATTEND Neurological Surgery
DX: M43.22 Fusion of spine, cervical region (principal); M50.31 Other cervical disc degeneration, high cervical region; M48.02 Spinal stenosis, cervical region; M46.02 Spinal enthesopathy, cervical region
CPT/HCPCS: 72040

== ENCOUNTER → 2019-05-30 | Outpatient (CLI) | payer BC, OTHER ==
[~2019-05-30] MED LIST changes: -HYDR-2762 PO; +HYDR-2765 PO; +OMEP40CA45 PO; -OMEP40CA5 PO
[2019-05-30 15:30] LABS: BASO # 0.1 x10^3/uL (0.0-0.2); BASO % 1 % (0-3); EOS # 0.3 x10^3/uL (0.0-0.7); EOS % 3 % (0-3); HEMATOCRIT 44.5 % (39.0-53.0); LYMPH # 2.6 x10^3/uL (1.0-4.8); LYMPH % 29 % (24-48); MEAN CORPUSCULAR HEMOGLOBIN 29 pg (25-35); MEAN CORPUSCULAR HGB CONC 34 g/dL (31-37); MEAN CORPUSCULAR VOLUME 84 fL (79-100); MONO # 0.7 x10^3/uL (0.0-1.1); MONO % 8 % (0-9); NEUT # 5.4 x10^3/uL (1.8-7.7); NEUT % 60 % (31-73); PLATELET COUNT 267 x10^3/uL (140-400); RED BLOOD COUNT 5.27 x10^6/uL (4.30-5.70); RED CELL DISTRIBUTION WIDTH 15.8 % (11.5-14.5); WHITE BLOOD COUNT 9.1 x10^3/uL (4.0-11.0)
[2019-05-30 15:43] LABS: PROTHROMBIN TIME PATIENT 12.1 SEC (11.7-14.0)
[2019-05-30 15:47] LABS: ALBUMIN 3.8 g/dL (3.4-5.0); ALBUMIN/GLOBULIN RATIO 1.2 (1.0-1.7); CALCIUM 8.6 mg/dL (8.5-10.1); CREATININE 1.1 mg/dL (0.7-1.3); GFR 67.4; POTASSIUM 4.5 mmol/L (3.5-5.1); TOTAL BILIRUBIN 0.3 mg/dL (0.2-1.0); TOTAL PROTEIN 7.1 g/dL (6.4-8.2)
== END | disposition home or self-care (01) ==
LOC: SURGPAT 13:58
PROVIDERS: ATTEND Neurological Surgery
DX: Z01.818 Encounter for other preprocedural examination (principal); M48.02 Spinal stenosis, cervical region; M47.22 Other spondylosis with radiculopathy, cervical region
CPT/HCPCS: 36415; 80053; 82306; 85025; 85610; 85730; 87641

== ENCOUNTER 2019-06-09 07:13 | Observation (INO) | payer BC, OTHER ==
--- NOTE | 2019-06-06 15:40 | HP ---
ADMIT DATE: 06/09/2019 PREOPERATIVE HISTORY AND PHYSICAL HISTORY OF PRESENT ILLNESS: The patient is a pleasant 64-year-old, who in April 2018 underwent a 2-level ACDF for neck and arm pain and weakness. The problem improved significantly with the surgery. At the time of the operation, however, he did have problems at C3-C4 on the right with significant right-sided neuroforaminal narrowing. He reports that over the recent months, he has developed increasing right-sided facial and head pain as well as right greater than left neck pain. Occasionally, the pain can radiate into his shoulder on the right. He can note numbness on the right arm. The pain is severe. He rates as a 7-8/10. Virtually any activity increases his pain. Rest helps him. PAST MEDICAL HISTORY: Arthritis, cancer, chest pain, headaches or migraines, head or neck injury, hypertension, parathyroid disease, rheumatoid arthritis, stomach or intestinal disease, thyroid disease, diabetes. PAST SURGICAL HISTORY: Hernia repair in 1981, deviated septum in 1981, cardiac cath in 1999, ACDF C5-C6 and C6-C7 in April 2018. FAMILY HISTORY: Cancer, diabetes, heart problems and disease. ALLERGIES: No known drug allergies. CURRENT MEDICATIONS: Acetaminophen, atorvastatin, aspirin, cyclobenzaprine, diazepam, [place], insulin, aspartame, levothyroxine, metformin, nitroglycerin, omeprazole, pregabalin, sertraline, tamsulosin, triamcinolone acetonide, morphine. REVIEW OF SYSTEMS: A 12-point review of systems was obtained and is noncontributory except for that mentioned above. PHYSICAL EXAMINATION: NEUROSURGERY EXAMINATION: GENERAL APPEARANCE: Alert, pleasant, no acute distress. HEAD: Normocephalic, atraumatic. NECK AND THYROID: Gppl-dq-yfouxyyf tenderness with palpation of posterior cervical region. SKIN: Warm and dry. MUSCULOSKELETAL: Cervical paraspinal muscle bulk is normal, restricted range of motion of the cervical spine, normal range of motion of the upper extremities bilaterally. EXTREMITIES: No clubbing, cyanosis, or edema. NEUROLOGIC: Alert and oriented x 3, normal recent and remote memory, strength 5/5 in bilateral upper and lower extremities. Sensory was intact to light touch in the upper and lower extremities. Reflexes are present and symmetric in the upper and lower extremities bilaterally. Normal gait. IMAGING: I reviewed his previous imaging studies. There is a right-sided neuroforaminal narrowing at C3-C4 and C4-C5 that is significant. ASSESSMENT/PLAN: The problems at C3-C4 and C4-C5 on the right can certainly be contributing to his pain. At this point, he would like to go ahead with surgery. I discussed surgery with him. I discussed posterior cervical surgery at C3-C4 and C4-C5. I discussed the technique of the operation. I outlined the risks and expected postoperative course. He would like to go ahead. We will make the arrangements. DIANE VELASQUEZ MD DR: NAYELY/nika JOB#: [id number] / [id number] BUCK
[2019-06-09] VITALS (9 sets, daily range): BP systolic 106–156; BP diastolic 60–82
[~2019-06-09] VITALS: Ht 203.2 cm; Wt 127.0 kg
[~2019-06-09 07:13] MED LIST changes: +BACITRACIN 50,000 UNIT in IV NORMAL SALINE 1000ML BAG 1,000 ML IRR ONE; +GELATIN SPONGE SIZE 100. ONE; +HYDROmorphone 2 MG/ML VIAL IV PRN; +IV RINGERS,LACTATED 1000ML 1,000 ML IV SCH; +KETOROLAC 60 MG/2 ML VIAL. ONE; +LIDOCAINE 1% PF 2 ML VIAL. ID PRN; +ONDANSETRON PF 4 MG/2 ML VIAL. IV PRN; +PROCHLORPERAZINE 10 MG/2 ML VIAL. IV PRN; +THROMBIN TOPICAL 20,000 UNIT SPRAY.SYRN KIT TP ONE; +ceFAZolin SODIUM 3 GM in IV DEXTROSE 5% 100ML 100 ML IV PRN; +fentaNYL PF VIAL 100 MCG/2 ML VIAL IV PRN
[2019-06-09] MEDS ORDERED: BUPIVACAINE-EPI 0.5%-1:200000 MPF 30 ML VIAL. INJ ONE (07:30)
[2019-06-09] MEDS: INSULIN LISPRO 100 UNIT/ML 3ML VIAL for OP,RR ONLY. SQ PRN ×2 (07:56→13:43)
[2019-06-09] MEDS ORDERED: LIDOCAINE 2% PF 5 ML VIAL. ONE (08:16)
[2019-06-09] MEDS ORDERED: PROPOFOL 20 ML IV ONE (08:16)
[2019-06-09] MEDS ORDERED: DEXAMETHASONE SOD PHOS 20 MG/5 ML VIAL. ONE (08:17)
[2019-06-09] MEDS ORDERED: ePHEDrine PF IN SALINE 50 MG/10 ML SYRINGE. IV ONE (08:17)
[2019-06-09] MEDS ORDERED: ONDANSETRON PF 4 MG/2 ML VIAL. ONE (08:17)
[2019-06-09] MEDS ORDERED: PHENYLEPHRINE in 0.9% NACL PF 1 MG/10 ML SYRINGE. IV ONE (08:17)
[2019-06-09] MEDS ORDERED: PROPOFOL 50 ML IV ONE ×2 (08:17→10:08)
[2019-06-09] MEDS ORDERED: GLYCOPYRROLATE 1 MG/5 ML VIAL. ONE (08:17)
[2019-06-09] MEDS ORDERED: SUCCINYLCHOLINE 200 MG/10 ML VIAL. ONE (08:17)
[2019-06-09] MEDS ORDERED: ROCURONIUM 50 MG/5 ML VIAL. ONE (08:17)
[2019-06-09] MEDS ORDERED: fentaNYL PF VIAL 100 MCG/2 ML VIAL ONE ×3 (08:18→12:57)
[2019-06-09] MEDS ORDERED: MIDAZOLAM HCL/PF 2 MG/2 ML VIAL. ONE (08:18)
[2019-06-09] MEDS ORDERED: REMIFENTANIL 2 MG VIAL. IV ONE ×2 (08:18→11:00)
[2019-06-09] MEDS ORDERED: DESFLURANE > 120 MINUTES IH ONE (09:16)
[2019-06-09] MEDS ORDERED: NEOSTIGMINE METHYLSULFATE 5 MG/5 ML SYRINGE. ONE (10:26)
[2019-06-09] MEDS ORDERED: PHENYLEPHRINE 10 MG/ML VIAL. ONE (11:41)
[2019-06-09] MEDS ORDERED: MORPHINE SULFATE 2 MG/ML VIAL. ONE (12:42)
[2019-06-09] MEDS: MORPHINE SULFATE 2 MG/ML VIAL. IV PRN ×2 (12:46→12:56)
[2019-06-09] MEDS: fentaNYL PF VIAL 100 MCG/2 ML VIAL IV PRN ×2 (13:01→13:07)
[2019-06-09] MEDS: POTASSIUM CL 20MEQ-0.45% NACL 1,000 ML IV SCH ×2 (13:05→23:49)
[2019-06-09] MEDS ORDERED: CYCLOBENZAPRINE 10 MG TABLET. PO PRN (13:15)
[2019-06-09] MEDS ORDERED: fentaNYL PF VIAL 100 MCG/2 ML VIAL IVP PRN (13:15)
[2019-06-09] MEDS ORDERED: oxyCODONE/APAP 5/325 1 TAB TABLET PO PRN (13:15)
[2019-06-09] MEDS ORDERED: ONDANSETRON PF 4 MG/2 ML VIAL. IV PRN (13:15)
[2019-06-09] MEDS ORDERED: diphenhydrAMINE HCL 25 MG CAPSULE PO PRN (13:15)
[2019-06-09] MEDS ORDERED: ACETAMINOPHEN 325 MG TABLET. PO PRN (13:15)
[2019-06-09] MEDS ORDERED: 0.9 % SODIUM CHLORIDE 10 ML DISP.SYRIN. IV PRN (13:15)
[2019-06-09] MEDS ORDERED: CALCIUM CARBONATE 500 MG TAB.CHEW PO PRN (13:15)
[2019-06-09] MEDS ORDERED: MAGNESIUM HYDROXIDE 2,400 MG/30 ML ORAL.SUSP. PO PRN (13:15)
[2019-06-09] MEDS ORDERED: NALOXONE 0.4 MG/ML VIAL. IV PRN (13:15)
[2019-06-09] MEDS ORDERED: MAG HYDROX/ALUMINUM HYD/SIMETH 30 ML ORAL.SUSP PO PRN (13:15)
--- NOTE | 2019-06-09 13:29 | OP ---
DATE OF SURGERY: 06/09/2019 PREOPERATIVE DIAGNOSES: Lateral recess and foraminal stenosis at C3-C4, C4-C5 right with right cervical radiculopathy. POSTOPERATIVE DIAGNOSIS: Lateral recess and foraminal stenosis at C3-C4, C4-C5 right with right cervical radiculopathy. OPERATION PERFORMED: Posterior cervical hemilaminotomy, medial facetotomy C3-C4, C4-C5 right with decompression of dura and nerve root. The operation was done with multimodality monitoring including EMG, SSEP, NIMS, MEP, fluoroscopy, microscopic dissection. SURGEON: Jean Claude Velasquez M.D. SPINNER FIXER: CHILANGO Woods. OPERATIVE INDICATIONS: The patient is a pleasant 64-year-old man who developed intractable neck and right arm pain, which failed conservative measures. On imaging studies, he was found to have undergone a previous operation at C5-C6, C6-C7 and at that time, it was known that he had right-sided neural foraminal narrowing at C3-C4 and we discussed the possibility in the future, he may require further surgery at that level. At the time of repeat imaging though in addition to C3-C4, there was also foraminal narrowing at C4-C5 and I recommended posterior microdecompression on the right at both of those levels. I discussed with him the rationale for surgery, the technique of the operation. He understood and wished to go ahead. DESCRIPTION OF PROCEDURE: Following general endotracheal anesthesia, the patient was positioned prone in Mejia pins in a neutral position. His posterior cervical region was then clipped, prepped and draped in standard fashion. ALPESH hose and AV impulse boots were applied for DVT prophylaxis. The microscope was draped. Fluoroscopy was draped and brought into field. Monitoring was established. Ancef 3 grams was given less than 1 hour prior to initiation of the surgery. Using fluoroscopic guidance, a midline incision was made. We were unable to visualize because of his body habitus below the C3-C4 disc, but I could well visualize the C3-C4 and the incision extending from C3-C4 through C4-C5. I dissected down through skin and subcutaneous tissue, reflected the paraspinal muscles and placed a [place] microdisk retractor. I brought in the microscope and drilled a hemilaminotomy at C3-C4, I worked laterally thinning the bone with a high-speed air drill and then trimming it with the 1 and 2 mm micro Kerrison's as well as using an up grasping curette to peel back further bone, and as I worked laterally I was able to fully decompress the region. I then went up to C4-C5 and performed the identical operation at C4-C5 without difficulty. I then removed the retractors. We then explored carefully and assured the roots were free. As I exited, I irrigated copiously. I obtained excellent hemostasis in the muscle and I closed the wound in layers with absorbable suture. The skin was closed with 4-0 subcuticular stitch. The operation went very well. I was quite pleased with the surgery. JEAN CLAUDE VELASQUEZ MD DR: NAYELY/nika JOB#: [id number] / [id number] BUCK
[2019-06-09] MEDS: oxyCODONE/APAP 5/325 1 TAB TABLET PO PRN ×2 (14:56→20:15)
[2019-06-09] MEDS: metFORMIN XR 500 MG TAB.ER.24H PO SCH (17:09)
[2019-06-09] MEDS: INSULIN LISPRO 300 UNITS/3 ML VIAL. SQ SCH (17:12)
[2019-06-09] MEDS: MORPHINE ER 15 MG TABLET.ER PO SCH (20:15)
[2019-06-09] MEDS: DOCUSATE SODIUM 100 MG CAPSULE. PO SCH (20:15)
[2019-06-09] MEDS ORDERED: diazePAM 5 MG TABLET PO PRN (21:00)
[2019-06-09] MEDS ORDERED: ATORVASTATIN CALCIUM 40 MG TABLET. PO SCH (21:00)
[2019-06-09] MEDS ORDERED: INSULIN GLARGINE SYRINGE. SQ SCH (22:00)
[2019-06-10] MEDS: oxyCODONE/APAP 5/325 1 TAB TABLET PO PRN ×3 (00:56→11:12)
[2019-06-10 02:02] VITALS: BP 131/62
[2019-06-10 07:00] VITALS: BP 105/63
[2019-06-10] MEDS ORDERED: LEVOTHYROXINE 150 MCG TABLET PO SCH (07:00)
[2019-06-10] MEDS ORDERED: PANTOPRAZOLE 40 MG TABLET.DR. PO SCH (07:30)
[2019-06-10] MEDS: INSULIN LISPRO 300 UNITS/3 ML VIAL. SQ SCH (08:00)
[2019-06-10] MEDS: DOCUSATE SODIUM 100 MG CAPSULE. PO SCH (08:24)
[2019-06-10] MEDS: MORPHINE ER 15 MG TABLET.ER PO SCH (08:25)
[2019-06-10] MEDS: metFORMIN XR 500 MG TAB.ER.24H PO SCH (08:25)
[2019-06-10] MEDS ORDERED: TAMSULOSIN 0.4 MG CAP.ER.24H. PO SCH (09:00)
--- NOTE | 2019-06-10 09:17 | NUR ---
SW following for discharge planning. Discussed with RN, pt is from home with . RN advised no SW needs and anticipates pt will discharge home today with self care. SW will continue to follow, should any discharge needs arise.
[2019-06-10] MEDS ORDERED: DOCU100C28 PO (10:31)
[2019-06-10] MEDS ORDERED: OXYC1TAB15 PO (10:31)
--- NOTE | 2019-06-10 10:33 | DISCH ---
DISCHARGE INSTRUCTIONS Condition on Discharge Condition on Discharge: Stable Activity After Discharge Activity Instructions for Disc: Activity as tolerated, Avoid exertion, Walk in house Other activity instructions: ambulation is the only exercise permitted; gradually increase distance and Bathing Instructions: Shower-keep dressing dry, No Tub Bath until see Lifting Instructions after Dis: No heavy lifting, No pulling or pushing, Do not lift >10 pounds Exercise Instruction after Dis: Progress as tolerated Driving Instructions after Dis: No driving for 2 weeks Weight Bearing Status after Di: No restrictions, Full weight bearing, As tolerated Diet after Discharge Diet after Discharge: Regular Additional Diet Restrictions: resume home diet Diet Texture: Regular Wound Incision Care Wound/Incision Care: Ice to area for comfort, Do not change dressing Other wound/incision instructi: change dressing after to shower; may leave off if no drainage Wound Care Equipment: Dressings Contacting the after DC Call your doctor for: Concerns you may have Follow-Up Follow Up With: call [phone] for a 2 week post op appt with Dr. Velasquez's nurse Treatment/Equipment after DC Adaptive Equipment Issued: None DIANE VELASQUEZ MD Jun 10, 2019 10:33
--- NOTE | 2019-06-10 12:44 | DS ---
DATE OF DISCHARGE: 06/10/2019 DISCHARGE DIAGNOSES: Lateral recess and foraminal stenosis, C3-C4, C4-C5 right with right cervical radiculopathy. OPERATION PERFORMED: Posterior cervical hemilaminotomy, medial facetectomy, C3-C4, C4-C5, right. HISTORY OF PRESENT ILLNESS: The patient is a pleasant 64-year-old man who developed intractable neck and right arm pain, which failed to improve with conservative measures. On imaging studies, he had the above-mentioned findings and surgery was recommended. I discussed with him the surgery technique, the risk and postoperative course and he wished to go ahead. HOSPITAL COURSE: He was admitted to the floor postoperatively where he has done well. He notes significant improvement in his right arm pain. His pain is well controlled with medication. He has been up ambulating in the room and in the halls with physical therapy. DISCHARGE MEDICATIONS: Per MRAD. DISCHARGE INSTRUCTIONS: He was instructed regarding incision care, activity restrictions and expectations for the next several weeks. He will follow up in our office in 2 weeks. He understands to call with any questions or concerns. DIANE VELASQUEZ MD DR: LA NENA/nika JOB#: [id number] / [id number]
--- NOTE | 2019-06-10 12:58 | NUR ---
Pt discharged home with self care. Discharge instructions and prescriptions discussed with pt and . Both verbalized understanding. IV removed without complications. Pt assisted to wheelchair and was taken to out pt entrance by ORDER DEPARTMENT SUPERVISOR and secured in vehicle with .
--- NOTE | 2019-06-11 09:07 | PATHOLOGY ---
[facility] Accession Number: [id number] . 01 Material submitted: . vertebral column - CERVICAL DECOMPRESSION . 01 Clinical history: . Cervical stenosis, spondylosis . 02 Diagnosis: Segments of fibrocartilaginous, fibroadipose, and skeletal muscle tissue and bone, cervical decompression: - Degenerative changes of fibrocartilaginous tissue. . (JPM:mm; 06/10/2019) M 06/10/2019 1625 Local . 02 Comment: There is no evidence of an acute inflammatory process or malignancy. . (JPM:mml; 06/10/2019) . 02 Electronically signed: . Eric Lowe MD, Pathologist NPI- [id number] . 01 Gross description: . Received in formalin labeled "Philip Joshua, cervical decompression," are several pieces of glistening, fibrous tissue measuring 4.0 x 2.5 x 1.1 cm in aggregate dimensions, containing small fragments of possible bone. The tissue is submitted representatively in cassette A1, following decalcification. (TSD; 06/09/2019) TOB/TOB 06/09/2019 1817 Local . 02 Pathologist provided ICD-10: M50.30 . 02 CPT . 952553, [id number] Specimen Comment: A courtesy copy of this report has been sent to [phone], [phone]- Specimen Comment: [id number] Specimen Comment: Report sent to and Specimen Comment: A duplicate report has been generated due to demographic updates. Performed at: [address], [place], [place] [id number] MD Forrest Vang MD Phone: [phone] Performed at: 02 [facility] [address] [place], [place] [id number] MD Eric Lowe MD Phone: [phone]
== END 2019-06-10 13:00 | disposition home or self-care (01) ==
LOC: SURG 07:13 → 4 NORTH 13:05
PROVIDERS: ADMIT Neurological Surgery; ATTEND Neurological Surgery
DX: M48.02 Spinal stenosis, cervical region (principal); E11.9 Type 2 diabetes mellitus without complications; I10 Essential (primary) hypertension; M06.9 Rheumatoid arthritis, unspecified; Z83.3 Family history of diabetes mellitus
CPT/HCPCS: 63020; 63035; 76000; 82962; 88304; 88311; 96372; 97116; 97162; 97530; A7015; G0378; G0379; J0171; J0330; J1100; J1815; J1885; J2001; J2250; J2270; J2370; J2405; J2704; J2710; J3010; J3490; J7030; J7120

== ENCOUNTER → 2019-11-10 | Outpatient (CLI) | payer BC, OTHER ==
[~2019-11-10] MED LIST changes: -BACITRACIN 50,000 UNIT in IV NORMAL SALINE 1000ML BAG 1,000 ML IRR ONE; +DOCU100C28 PO; -GELATIN SPONGE SIZE 100. ONE; -HYDROmorphone 2 MG/ML VIAL IV PRN; +IOHEXOL 300 MG/ML 50 ML VIAL. IT ONE; -IV RINGERS,LACTATED 1000ML 1,000 ML IV SCH; -KETOROLAC 60 MG/2 ML VIAL. ONE; +LIDOCAINE 1% Multi-Dose 20 ML VIAL. ID ONE; -LIDOCAINE 1% PF 2 ML VIAL. ID PRN; -ONDANSETRON PF 4 MG/2 ML VIAL. IV PRN; +OXYC1TAB15 PO; -PROCHLORPERAZINE 10 MG/2 ML VIAL. IV PRN; -THROMBIN TOPICAL 20,000 UNIT SPRAY.SYRN KIT TP ONE; -ceFAZolin SODIUM 3 GM in IV DEXTROSE 5% 100ML 100 ML IV PRN; -fentaNYL PF VIAL 100 MCG/2 ML VIAL IV PRN
--- NOTE | 2019-11-10 11:52 | KCIC ---
Cervical myelogram History: Cervical radiculopathy Technique: Patient was informed of the risks to include pain, infection, bleeding, seizures, allergic reaction, nerve root injury. All questions were answered. Patient signed a written consent form for a cervical myelogram. The patient was placed in a prone oblique position. The patient was prepped and draped in the usual sterile fashion. 1% lidocaine was utilized for local anesthesia at the anticipated site of puncture of the right L2-L3 interlaminar space. A 19-gauge guiding needle was advanced into the soft tissues. Through the guiding needle, a 25 gauge Pascale needle was advanced until there was return of cerebral spinal fluid. Approximately 10 cc Omnipaque 300 were then injected during fluoroscopic visualization. The needles were removed. Patient was repositioned so as to allow for the flow of contrast into the cervical spine. Fluoroscopic spot images and lateral radiograph were obtained. The patient was then transferred to the CT department for CT examination of the cervical spine. There were no immediate complications. Fluoroscopy time: 51 seconds, 8 images Findings: There is suboptimal visualization of the contrast column due to patient's body habitus. There is anterior cervical fusion hardware C5, C6, C7. There are spinal stimulator leads, one tip terminating near the inferior aspect of C2 the other terminating at the C3 level. There is multilevel cervical facet degenerative change. There was no evidence of myelographic block. There is moderate degenerative disc disease at C4-5 and to lesser degree at C3-4. Impression: 1. There is anterior cervical fusion hardware C5-C7. There are cervical spinal stimulator leads as stated. 2. There is degenerative disc disease at C4-5 and to lesser degree at C3-4. There is multilevel cervical facet degenerative change. Electronically signed by: Willi Moreno MD (11/10/2019 11:49 AM) [id number]
--- NOTE | 2019-11-10 12:27 | KCIC ---
Cervical spine CT without contrast History: Cervical radiculopathy, previous fusion, chronic right radiculopathy, worsening pain Technique: Noncontrast CT imaging was performed of the cervical spine. Multiplanar images are reviewed. Exposure: One or more of the following individualized dose reduction techniques were utilized for this examination: 1. Automated exposure control 2. Adjustment of the mA and/or kV according to patient size 3. Use of iterative reconstruction technique. Comparison: CT cervical spine exam April 01, 2018; MRI cervical spine exam January 04, 2018 Findings: Exam is somewhat limited due to beam attenuation by the soft tissues. There has been interval anterior cervical fusion with anterior metallic plate and screws at C5, C6, and C7. There is some incorporation of the C5-6 interbody graft, not clearly apparent at C6-7. There is not interbody fusion at these levels. Vertebral body stature is preserved. AP is alignment is within normal limits. Atlanto-axial distance is within normal limits, associated degenerative change. There is appropriate alignment of lateral masses of C1 relative to C2. Occipital condylar-C1 relationship is maintained. There are spinal stimulator leads, more superior tip of the left terminating at the inferior aspect of C2 and more inferior tip terminating at the C3 level. C2-C3: Spinal canal and neural foramina are adequate. There is moderate bilateral facet degenerative change. C3-4: There is minimal disc osteophyte complex greater in the lateral recesses bilaterally. There is mild narrowing of the far lateral recesses bilaterally. There is fairly severe right facet degenerative change, to a lesser degree on the left. There is uncovertebral degenerative change bilaterally greater on the right. There is moderate to severe neural foramina compromise bilaterally. C4-C5: There is minimal disc osteophyte complex, mild indentation upon the ventral thecal sac lateral recesses bilaterally. Central canal is adequate about 11 mm, mild narrowing of the far lateral recesses bilaterally. There is bilateral facet hypertrophic change. There is uncovertebral and to change bilaterally greater on the right. There is moderate to severe neural foramina compromise bilaterally. C5-6: Central canal is adequate about 11 to 12 mm. There are minimal posterior osteophytes greater in the lateral recesses bilaterally with mild indentation upon the ventral thecal sac, spinal canal not significantly narrowed. There is bilateral facet hypertrophic change. There is bilateral uncovertebral degenerative change. There is moderate to severe right and [id number] left neural foramina compromise. C6-7: There are posterior osteophytes slightly indenting the ventral thecal sac, greater in the lateral recesses bilaterally. Central canal is adequate about 11 mm. There is uncovertebral and facet degenerative change bilaterally. There is severe left and moderate to severe right neural foramina compromise. C7-T1: Spinal canal is adequate. There is facet degenerative change bilaterally, contributes to minimal posterior narrowing of the right neural foramen, left neural foramen overall adequate. Impression: 1. There is no significant cervical spinal stenosis, mild narrowing of the far lateral recesses bilaterally such as C3-4 and C4-C5. There is anterior cervical fusion hardware at C5-C7. There are cervical spinal stimulator leads as stated. There is C3-4 and C4-5 degenerative disc disease and spondylosis. 2. There is multilevel facet and uncovertebral degenerative change contributing to multilevel cervical neural foramina compromise as stated, more significant narrowing bilaterally at C3-4, C4-5, C6-7, and right greater than left at C5-C6. Electronically signed by: Willi Moreno MD (11/10/2019 12:24 PM) [id number]
== END | disposition home or self-care (01) ==
LOC: KCIC 10:05
PROVIDERS: ATTEND Neurological Surgery
DX: M50.11 Cervical disc disorder with radiculopathy, high cervical region (principal); M47.22 Other spondylosis with radiculopathy, cervical region; M48.03 Spinal stenosis, cervicothoracic region; M25.78 Osteophyte, vertebrae; M89.38 Hypertrophy of bone, other site; E11.9 Type 2 diabetes mellitus without complications; Z79.01 Long term (current) use of anticoagulants
CPT/HCPCS: 72126; 72240; J3490; Q9967

== ENCOUNTER → 2020-07-26 | Outpatient (CLI) | payer MEDICARE, BC, OTHER ==
[~2020-07-26] MED LIST changes: +IOHEXOL 180 MG/ML 10 ML VIAL. IT ONE; -IOHEXOL 300 MG/ML 50 ML VIAL. IT ONE; -LIDOCAINE 1% Multi-Dose 20 ML VIAL. ID ONE; -PREG50CA PO; +PREG50CA91 PO
--- NOTE | 2020-07-26 13:38 | KCIC ---
Lumbar myelogram 07/26/2020 Clinical History: Low back pain which radiates down the right leg. Technique: After the risks and benefits of the procedure were explained to the patient, written infor med consent was obtained. The patient was placed prone on the fluoroscopy table and the lower back wa s prepped and draped in sterile fashion. 1% lidocaine was used as a local anesthetic. Under fluorosco pic guidance, the thecal sac of the lumbar cistern was punctured at the L2-L3 level using a 25-gauge Pascale needle. After confirming clear CSF return, 15 cc of Omnipaque 180 were injected through the needle into the thecal sac of the lumbar cistern under fluoroscopic guidance. Following this the need le was removed and hemostasis achieved at the puncture site. A sterile bandage was placed on the skin puncture site. AP, bilateral oblique, lateral and standing neutral, flexion and extension lateral di gital radiographs of the lumbar spine were obtained. Following this the patient was taken to CT wher e a CT scan of the lumbar spine was performed. This will be reported separately. [facility] with an instruction sheet. The patient tolerated the procedure well and there were no immediate complications. The total fluoroscopic time for this procedure was 64 seco nds. 9 digital spot radiographs were obtained. Findings: A spinal stimulator is noted. Mild anterolisthesis of L5 in relation to S1 is noted. Degene rative changes consisting of vertebral endplate sclerosis and minimal anterior and posterior vertebra l body osteophyte formation are seen throughout the lumbar disc spaces. Disc space narrowing is seen at L5-S1. Mild anterior extradural defects are seen upon the contrast column at L1-2, L2-3, L4-5 and L5-S1. There is no evidence of complete block of contrast at any level. Degenerative changes are seen involving the facet joints, L4-5 and L5-S1. The alignment of the lumbar vertebrae is maintained on t he flexion and extension radiographs. Impression: Degenerative changes are seen throughout the lumbar spine. These findings result in mild anterior extradural defects upon the contrast column at L1-2, L2-3, L4-5 and L5-S1 without evidence o f complete block of contrast. Electronically signed by: Román Reinoso MD (07/26/2020 1:36 PM) [id number]
--- NOTE | 2020-07-26 14:51 | KCIC ---
CT lumbar myelogram 07/26/2020 Clinical History: Low back pain which radiates down the right leg. Technique: This study was performe d after a lumbar myelogram, contiguous, 0.625 mm axial sections were obtained through the lumbar spin e. 3 mm sagittal, coronal and axial reconstructed images were obtained. One or more of the following individualized dose reduction techniques were utilized for this study: 1. Automated exposure control. 2. Adjustment of the mA and/or kV according to patient size. 3. Use of iterative reconstruction technique. Findings: Comparison is made to the patient's MRI of the lumbar spine dated 10/30/2009. Additional com parison is made to the patient's lumbar myelogram performed earlier today. The sagittal and coronal reconstructed images demonstrate spinal stimulator leads extend to the thora cic spine. Minimal S-shaped curvature of the thoracolumbar spine is seen. Mild anterolisthesis of L5 in relation to S1 is seen. Degenerative changes consisting of disc space narrowing, vertebral endplat e sclerosis and minimal to mild anterior and posterior vertebral body osteophyte formation are seen a t L5-S1. Atherosclerotic calcification abdominal aorta and its branches is noted. At the L1-2 and L2-3 disc spaces there are minimal generalized disc bulges. Degenerative changes are seen involving the facet joints bilaterally. There is mild ligament flavum hypertrophy bilaterally. T hese findings do not result in significant central spinal canal or neural foraminal stenosis. At the L3-4 disc space there is a mild generalized disc bulge. Degenerative changes are seen involvin g the facet joints bilaterally. There is mild ligamentum flavum hypertrophy bilaterally. These findin gs when combined result in mild central spinal canal stenosis. No neural foraminal stenosis is seen. At the L4-5 disc space is a mild to moderate generalized disc bulge. Degenerative changes are seen in volving the facet joints bilaterally. There is moderate ligamentum flavum hypertrophy bilaterally. Th cee findings when combined result in mild central spinal canal stenosis. No neural foraminal stenosis is seen. At the L5-S1 disc space there is a mild generalized disc bulge. Degenerative changes are seen involvi ng the facet joints, right greater than left. These findings when combined with the mild anterolisthe sis at this level result in mild central spinal canal stenosis. Mild to moderate right greater than l eft neural foraminal stenosis is seen. Impression: Degenerative changes are seen throughout the lumbar spine resulting in mild central spin al canal stenosis at L3-4, L4-5 and L5-S1. Mild to moderate right greater than left neural foraminal stenosis is seen at L5-S1. Electronically signed by: Román Reinoso MD (07/26/2020 2:48 PM) [id number]
== END | disposition home or self-care (01) ==
LOC: KCIC 08:10
PROVIDERS: ATTEND Neurological Surgery
DX: M54.5 Low back pain (principal); M47.26 Other spondylosis with radiculopathy, lumbar region; M48.061 Spinal stenosis, lumbar region without neurogenic claudication; M79.661 Pain in right lower leg; M25.78 Osteophyte, vertebrae
CPT/HCPCS: 62304; 72132; Q9965

== ENCOUNTER → 2020-08-18 | Outpatient (CLI) | payer MEDICARE, BC, OTHER ==
[~2020-08-18] MED LIST changes: +AMLO2.5T5 PO; +ASPI81TA59 PO; -IOHEXOL 180 MG/ML 10 ML VIAL. IT ONE; +SERT100T PO
--- NOTE | 2020-08-18 10:35 | HP ---
ADMIT DATE: 08/18/2020 PREOPERATIVE HISTORY AND PHYSICAL Surgery and admission is scheduled for 08/23/2020. HISTORY OF PRESENT ILLNESS: The patient is a pleasant 65-year-old man, who has difficulty with walking and low back pain, also pain that radiates to his right posterolateral thigh and leg. The problem has been present for more than 20 years. He rates his pain 8/10. Walking increases his pain. He is taking morphine, [place], and Flexeril to help with his pain. He had physical therapy about 10 years ago. He had epidural steroid injections in 2013 and in 2017, which helped him for a short time. He also has complaints of right shoulder pain. PAST MEDICAL HISTORY: Arthritis, cancer, chest pain, headaches, cervical injury, hypertension, parathyroid disease, rheumatoid arthritis, stomach/intestinal disease, thyroid disease, diabetes. PAST SURGICAL HISTORY: Hernia, deviated septum operation, cardiac catheterization, anterior cervical diskectomy and fusion at C5-C6 and C6-C7 in 04/2018, posterior cervical decompression C3-C4 and C4-C5 right in 05/2019. CURRENT MEDICATIONS: Atorvastatin, aspirin, Flexeril, diazepam, [place], insulin, levothyroxine, metformin, nitroglycerin, omeprazole, sertraline, tamsulosin, morphine, acetaminophen. ALLERGIES: No known drug allergies. FAMILY HISTORY: Cancer, diabetes, and heart disease. SOCIAL HISTORY: Employed. Is a former smoker. Drinks alcohol 1-2 times per year. PHYSICAL EXAMINATION: GENERAL: Alert, pleasant, in no acute distress. HEAD: Normocephalic, atraumatic. SKIN: Warm and dry. MUSCULOSKELETAL: Lumbar paraspinal muscle bulk is normal, restricted range of motion of the lumbar spine, [id number] tenderness of the lower lumbar spine with palpation, normal range of motion of the lower extremities bilaterally. EXTREMITIES: No clubbing, cyanosis or edema. NEUROLOGIC: Alert and oriented x 3, strength is 5/5 in the bilateral lower extremities, sensory was intact to light touch in the lower extremities bilaterally, reflexes were present and symmetric in the lower extremities, negative straight leg raising bilaterally, normal gait. IMAGING: I reviewed his lumbar myelogram and post-myelogram CT scan. On that study, there are degenerative changes; most notably at L4-L5 and L5-S1. There is lateral recess stenosis at L4-L5 and L5-S1 on the right. There is mild central spinal stenosis at L4-L5 and L5-S1. ASSESSMENT AND PLAN: I believe his symptoms are related to the problems at L4-L5 and L5-S1 on the right. I recommended a 2-level microdecompression. He would like to have his spinal cord stimulator removed at that time. We did discuss surgery with him, including the rationale, technique, risk and expected postoperative course. He understands and would like to proceed. We will make the arrangements. We will also refer him to Orthopedics for an evaluation of his shoulder. DIANE VELASQUEZ MD DR: LA NENA/nika JOB#: [id number] / [id number]
[2020-08-18 11:52] LABS: BASO # 0.1 x10^3/uL (0.0-0.2); BASO % 1 % (0-3); EOS # 0.2 x10^3/uL (0.0-0.7); EOS % 2 % (0-3); HEMATOCRIT 43.7 % (39.0-53.0); HEMOGLOBIN 14.8 g/dL (13.0-17.5); LYMPH # 2.6 x10^3/uL (1.0-4.8); LYMPH % 28 % (24-48); MEAN CORPUSCULAR HEMOGLOBIN 29 pg (25-35); MEAN CORPUSCULAR HGB CONC 34 g/dL (31-37); MEAN CORPUSCULAR VOLUME 85 fL (79-100); MONO # 0.7 x10^3/uL (0.0-1.1); MONO % 8 % (0-9); NEUT # 5.9 x10^3/uL (1.8-7.7); NEUT % 62 % (31-73); PLATELET COUNT 252 x10^3/uL (140-400); RED BLOOD COUNT 5.13 x10^6/uL (4.30-5.70); WHITE BLOOD COUNT 9.6 x10^3/uL (4.0-11.0)
[2020-08-18 12:08] LABS: ALBUMIN 3.6 g/dL (3.4-5.0); ALBUMIN/GLOBULIN RATIO 0.9 (1.0-1.7); CALCIUM 8.8 mg/dL (8.5-10.1); TOTAL BILIRUBIN 0.4 mg/dL (0.2-1.0); TOTAL PROTEIN 7.5 g/dL (6.4-8.2)
[2020-08-19 03:08] LABS: HEMOGLOBIN A1C 7.7 % (4.8-5.6)
== END ==
LOC: SURGPAT 10:47
PROVIDERS: ATTEND Neurological Surgery
DX: Z01.812 Encounter for preprocedural laboratory examination (principal); M54.16 Radiculopathy, lumbar region; M48.061 Spinal stenosis, lumbar region without neurogenic claudication; Z20.828 Contact with and (suspected) exposure to other viral communicable diseases
CPT/HCPCS: 80053; 83036; 85025; 87641; U0003

== ENCOUNTER 2020-08-23 07:13 | Observation (INO) | payer MEDICARE, BC, OTHER ==
[2020-08-23] VITALS (11 sets, daily range): BP systolic 112–146; BP diastolic 45–77
[~2020-08-23] VITALS: Ht 188 cm; Wt 122.0 kg
--- NOTE | 2020-08-23 07:01 | HP ---
ADMIT DATE: 08/23/2020 PREOPERATIVE HISTORY AND PHYSICAL HISTORY OF PRESENT ILLNESS: The patient is a pleasant 65-year-old man, who has difficulty with walking and low back pain, also pain that radiates to his right posterolateral thigh and leg. The problem has been present for more than 20 years. He rates his pain 8/10. Walking increases his pain. He is taking morphine, [place], and Flexeril to help with his pain. He had physical therapy about 10 years ago. He had epidural steroid injections in 2013 and in 2017, which helped him for a short time. He also has complaints of right shoulder pain. PAST MEDICAL HISTORY: Arthritis, cancer, chest pain, headaches, cervical injury, hypertension, parathyroid disease, rheumatoid arthritis, stomach/intestinal disease, thyroid disease, diabetes. PAST SURGICAL HISTORY: Hernia, deviated septum operation, cardiac catheterization, anterior cervical diskectomy and fusion at C5-C6 and C6-C7 in 04/2018, posterior cervical decompression C3-C4 and C4-C5 right in 05/2019. CURRENT MEDICATIONS: Atorvastatin, aspirin, Flexeril, diazepam, [place], insulin, levothyroxine, metformin, nitroglycerin, omeprazole, sertraline, tamsulosin, morphine, acetaminophen. ALLERGIES: No known drug allergies. FAMILY HISTORY: Cancer, diabetes, and heart disease. SOCIAL HISTORY: Employed. Is a former smoker. Drinks alcohol 1-2 times per year. PHYSICAL EXAMINATION: GENERAL: Alert, pleasant, in no acute distress. HEAD: Normocephalic, atraumatic. SKIN: Warm and dry. MUSCULOSKELETAL: Lumbar paraspinal muscle bulk is normal, restricted range of motion of the lumbar spine, evdf-nq-rnlkeysd tenderness of the lower lumbar spine with palpation, normal range of motion of the lower extremities bilaterally. EXTREMITIES: No clubbing, cyanosis or edema. NEUROLOGIC: Alert and oriented x 3, strength is 5/5 in the bilateral lower extremities, sensory was intact to light touch in the lower extremities bilaterally, reflexes were present and symmetric in the lower extremities, negative straight leg raising bilaterally, normal gait. IMAGING: I reviewed his lumbar myelogram and post-myelogram CT scan. On that study, there are degenerative changes; most notably at L4-L5 and L5-S1. There is lateral recess stenosis at L4-L5 and L5-S1 on the right. There is mild central spinal stenosis at L4-L5 and L5-S1. ASSESSMENT AND PLAN: I believe his symptoms are related to the problems at L4-L5 and L5-S1 on the right. I recommended a 2-level microdecompression. He would like to have his spinal cord stimulator removed at that time. We did discuss surgery with him, including the rationale, technique, risk and expected postoperative course. He understands and would like to proceed. We will make the arrangements. We will also refer him to Orthopedics for an evaluation of his shoulder. DIANE VELASQUEZ MD DR: LA NENA/nika JOB#: [id number] / [id number] BUCK
[~2020-08-23 07:13] MED LIST changes: +BACITRACIN 50,000 UNIT in IV NORMAL SALINE 1000ML BAG 1,000 ML IRR ONE; +BUPIVACAINE-EPI 0.5%-1:200000 MPF 30 ML VIAL. INJ ONE; +EPINEPHrine VIAL 30 MG/30 ML VIAL ONE; +GELATIN SPONGE SIZE 100. ONE; +HYDROmorphone 2 MG/ML VIAL IV PRN; +IV RINGERS,LACTATED 1000ML 1,000 ML IV SCH; +KETOROLAC 60 MG/2 ML VIAL. ONE; +LIDOCAINE 1% PF 2 ML VIAL. ID PRN; +LIDOCAINE 1% PF 30 ML VIAL. ONE; -OMEP40CA45 PO; +OMEP40CA7 PO; +ONDANSETRON PF 4 MG/2 ML VIAL. IV PRN; +PROCHLORPERAZINE 10 MG/2 ML VIAL. IV PRN; +THROMBIN TOPICAL 20,000 UNIT SPRAY.SYRN KIT TP ONE; +fentaNYL PF VIAL 100 MCG/2 ML VIAL IV PRN
[2020-08-23] MEDS ORDERED: LIDOCAINE 1%/EPI 1:100,000 20 ML VIAL. ONE (07:16)
[2020-08-23] MEDS ORDERED: SUCCINYLCHOLINE 200 MG/10 ML VIAL. ONE (07:51)
[2020-08-23] MEDS ORDERED: PROPOFOL 10 MG/ML (20ML) VIAL. IV ONE (07:51)
[2020-08-23] MEDS ORDERED: LIDOCAINE 2% PF 5 ML VIAL. ONE (07:51)
[2020-08-23] MEDS ORDERED: DEXAMETHASONE SOD PHOS 4 MG/ML VIAL ONE ×2 (07:51→09:32)
[2020-08-23] MEDS ORDERED: ONDANSETRON PF 4 MG/2 ML VIAL. ONE (07:51)
[2020-08-23] MEDS ORDERED: ROCURONIUM 50 MG/5 ML VIAL. ONE (07:52)
[2020-08-23] MEDS ORDERED: PROPOFOL 50 ML IV ONE (07:57)
[2020-08-23] MEDS: INSULIN LISPRO 100 UNIT/ML 3ML VIAL for OP,RR ONLY. SQ PRN ×2 (08:10→12:13)
[2020-08-23] MEDS ORDERED: fentaNYL PF VIAL 100 MCG/2 ML VIAL ONE ×3 (08:13→13:07)
[2020-08-23] MEDS ORDERED: MIDAZOLAM HCL/PF 2 MG/2 ML VIAL. ONE (08:14)
[2020-08-23] MEDS ORDERED: REMIFENTANIL 2 MG VIAL. IV ONE (08:14)
[2020-08-23] MEDS ORDERED: PHENYLEPHRINE 10 MG/ML VIAL. ONE (08:16)
[2020-08-23] MEDS ORDERED: ceFAZolin SODIUM 3 GM in IV DEXTROSE 5% 100ML 100 ML IV PRN (09:00)
[2020-08-23] MEDS ORDERED: PROPOFOL 100 ML IV ONE (10:51)
[2020-08-23] MEDS ORDERED: REMIFENTANIL 1 MG VIAL. IV ONE (11:03)
[2020-08-23] MEDS ORDERED: 0.9 % SODIUM CHLORIDE 20 ML VIAL. IJ ONE (11:04)
[2020-08-23] MEDS ORDERED: DESFLURANE > 120 MINUTES IH ONE (11:25)
[2020-08-23] MEDS ORDERED: GLYCOPYRROLATE 1 MG/5 ML VIAL. ONE (11:38)
--- NOTE | 2020-08-23 11:56 | OP ---
DATE OF SURGERY: 08/23/2020 PREOPERATIVE DIAGNOSES: 1. Not functioning spinal cord stimulator. 2. Lateral recess stenosis at L4-L5 and L5-S1, right, with right lumbar radiculopathy. POSTOPERATIVE DIAGNOSES: 1. Not functioning spinal cord stimulator. 2. Lateral recess stenosis at L4-L5 and L5-S1, right, with right lumbar radiculopathy. OPERATION PERFORMED: 1. Removal of spinal cord stimulator. 2. Hemilaminotomy with microdecompression of dura and nerve root at L4-L5 and L5-S1, right. The operation was done with EMG monitoring, SSEP monitoring, fluoroscopy, microscopic dissection. SURGEON: Jean Claude Velasquez M.D. CHILD WELFARE WORKER: LIZ Bruce assisted with the operation. She assisted with the exposure, the microdecompression at both levels as well as the closure. OPERATIVE INDICATIONS: The patient is a pleasant 65-year-old man who developed intractable back and right leg pain which has been present for years. He had placement of a spinal cord stimulator, which temporarily gave him some relief and then the spinal cord stimulator was not functioning and this was a number of years ago. Currently, he would like it removed. The pain has persisted despite all measures of conservative therapy. I evaluated him with myelography and on that study, there is lateral recess stenosis present at L4-L5 and L5-S1 on the right side and I recommended microdecompressive surgery. I spoke with him about the surgery and the risks, technique and he wished to go ahead. DESCRIPTION OF PROCEDURE: Following general endotracheal anesthesia, the patient was positioned prone on the Amarjit table. His lumbar region was prepped and draped in the standard fashion. ALPESH hose and AV impulse boots were applied for DVT prophylaxis. A microscope was draped. Fluoroscopy was draped and brought into field. Monitoring was established. Ancef 3 grams was given less than 1 hour prior to initiation of the surgery. Using fluoroscopic guidance, an incision was made directly over the spinal cord stimulator, which went to the lumbar region. I dissected down through skin and subcutaneous tissue and was able to easily remove the battery pack. I made a second incision in the midline and dissected down and went to the connectors, which I freed up from the surrounding tissue. I was easily able to pull the small electrodes out without any resistance and then I was able to remove the connecting device and the disposable electrodes without difficulty. I then following this removed the battery pack completely. I irrigated copiously and then using fluoroscopic guidance, found the location of L4-L5 and L5-S1, and made a midline incision. After infiltration with 0.5% Marcaine plus epinephrine, I dissected down through skin and subcutaneous tissue and worked down to the spinous processes, reflected the paraspinal muscles and placed a [place] microdisk retractor. I brought in the microscope. The remainder of surgery done with microscope using microscopic technique. I burred down a generous hemilaminotomy at L4-L5. I trimmed away thickened ligamentum flavum, peeled it from medial to lateral. There was a large laterally placed bone spur and I was able to free this up and peel this away. As I worked the dura, which was markedly compressed, especially laterally became completely free. I did perform a partial foraminotomy. The disc was flat, but discectomy was warranted. I then moved down to L5-S1. I performed the identical operation at L5-S1 and again I found the lateral piece of hypertrophic bone, which was knuckled down on to the lateral exiting root and I removed all this material and fully decompressed the entire region without difficulty. I irrigated both levels. Carefully, I obtained excellent hemostasis throughout. I closed the wound down in layers with absorbable suture after removal of the retractor and I assured myself of perfect hemostasis. The skin was closed with 4-0 subcuticular stitch. The other incisions were irrigated and closed with interrupted absorbable sutures and 4-0 subcuticular stitch. The operation went very well. I was quite pleased with the surgery. JEAN CLAUDE VELASQUEZ MD DR: NAYELY/nika JOB#: [id number] / [id number] BUCK
[2020-08-23] MEDS: fentaNYL PF VIAL 100 MCG/2 ML VIAL IV PRN ×3 (12:22→13:09)
[2020-08-23] MEDS ORDERED: INSULIN LISPRO 100 UNIT/ML 3ML VIAL for OP,RR ONLY. SQ ONE ×2 (12:30)
[2020-08-23] MEDS ORDERED: MORPHINE SULFATE 2 MG/ML VIAL. ONE (12:32)
[2020-08-23] MEDS: MORPHINE SULFATE 2 MG/ML VIAL. IV PRN ×2 (12:40→12:51)
[2020-08-23] MEDS ORDERED: MAGNESIUM HYDROXIDE 2,400 MG/30 ML ORAL.SUSP. PO PRN (12:45)
[2020-08-23] MEDS: POTASSIUM CL 20MEQ-0.45% NACL 1,000 ML IV SCH (12:45)
[2020-08-23] MEDS ORDERED: ONDANSETRON PF 4 MG/2 ML VIAL. IVP PRN (12:45)
[2020-08-23] MEDS ORDERED: ACETAMINOPHEN 325 MG TABLET. PO PRN (12:45)
[2020-08-23] MEDS ORDERED: CALCIUM CARBONATE 500 MG TAB.CHEW PO PRN (12:45)
[2020-08-23] MEDS ORDERED: 0.9 % SODIUM CHLORIDE 10 ML DISP.SYRIN. IV PRN (12:45)
[2020-08-23] MEDS ORDERED: NALOXONE 0.4 MG/ML VIAL. IV PRN (12:45)
[2020-08-23] MEDS ORDERED: diphenhydrAMINE HCL 25 MG CAPSULE PO PRN (12:45)
[2020-08-23] MEDS ORDERED: MAG HYDROX/ALUMINUM HYD/SIMETH 30 ML ORAL.SUSP PO PRN (12:45)
[2020-08-23] MEDS ORDERED: DEXTROSE 50% 25 GM / 50ML DISP.SYRIN. IV PRN (12:45)
[2020-08-23] MEDS ORDERED: HYDROcodone/APAP 7.5/325MG 1 TAB TABLET PO PRN (13:00)
--- NOTE | 2020-08-23 15:09 | NUR ---
received from recovery. He is alert and oriented x3. at bedside. has 2 dressings- 1st along the spine and the along the right posterior crest. up to the bathroom to attempt to void; unable at this time. up in recliner; wants to eat lunch. Addendum: 08/23/20 at 1512 by AFSHAN HAYDEN RN states he still has some numbness in his right arm but his leg is better.
[2020-08-23] MEDS: fentaNYL PF VIAL 100 MCG/2 ML VIAL IVP PRN ×2 (15:54→19:06)
--- NOTE | 2020-08-23 15:55 | NUR ---
ambulates to the bathroom; voided large amount Addendum: 08/23/20 at 1558 by AFSHAN HAYDEN RN medicated with fentanyl per request. gait is steadier this time
[2020-08-23] MEDS: INSULIN LISPRO 300 UNITS/3 ML VIAL. SQ SCH (17:29)
[2020-08-23] MEDS: HYDROcodone/APAP 7.5/325MG 1 TAB TABLET PO PRN (18:17)
[2020-08-23] MEDS: DOCUSATE SODIUM 100 MG CAPSULE. PO SCH ×2 (20:48→20:49)
[2020-08-23] MEDS: diazePAM 5 MG TABLET PO SCH (20:48)
[2020-08-23] MEDS: MORPHINE IR 15 MG TABLET PO SCH (20:49)
[2020-08-23] MEDS ORDERED: INSULIN GLARGINE SYRINGE. SQ SCH (21:00)
[2020-08-23] MEDS ORDERED: ATORVASTATIN CALCIUM 40 MG TABLET. PO SCH (21:00)
[2020-08-24] MEDS: fentaNYL PF VIAL 100 MCG/2 ML VIAL IVP PRN (01:03)
[2020-08-24] MEDS: POTASSIUM CL 20MEQ-0.45% NACL 1,000 ML IV SCH (02:05)
[2020-08-24 03:23] VITALS: BP 97/30
[2020-08-24] MEDS ORDERED: LEVOTHYROXINE 150 MCG TABLET PO SCH (06:00)
[2020-08-24 07:00] VITALS: BP 129/54
[2020-08-24] MEDS ORDERED: PANTOPRAZOLE 40 MG TABLET.DR. PO SCH (07:30)
[2020-08-24] MEDS: DOCUSATE SODIUM 100 MG CAPSULE. PO SCH ×2 (09:00→09:12)
[2020-08-24] MEDS ORDERED: ASPIRIN CHEWABLE 81 MG TABLET. PO SCH (09:00)
[2020-08-24] MEDS ORDERED: SERTRALINE 50 MG TABLET. PO SCH (09:00)
[2020-08-24] MEDS: MORPHINE IR 15 MG TABLET PO SCH (09:12)
[2020-08-24] MEDS: diazePAM 5 MG TABLET PO SCH (09:13)
[2020-08-24] MEDS: INSULIN LISPRO 300 UNITS/3 ML VIAL. SQ SCH ×2 (09:20→12:33)
--- NOTE | 2020-08-24 10:48 | DISCH ---
DISCHARGE INSTRUCTIONS Condition on Discharge Condition on Discharge: Stable Activity After Discharge Activity Instructions for Disc: Activity as tolerated, Avoid exertion, Walk in house Bathing Instructions: Shower-keep dressing dry, No Tub Bath until see Lifting Instructions after Dis: No heavy lifting, No pulling or pushing, Do not lift >10 pounds Exercise Instruction after Dis: Progress as tolerated Driving Instructions after Dis: No driving for 2 weeks Weight Bearing Status after Di: No restrictions, Full weight bearing, As tolerated Diet after Discharge Diet after Discharge: Regular Additional Diet Restrictions: resume home diet Diet Texture: Regular Wound Incision Care Wound/Incision Care: Ice to area for comfort, Do not change dressing Other wound/incision instructi: may remove dressing in 48 hours if dry Wound Care Equipment: Dressings Contacting the after DC Call your doctor for: Concerns you may have Follow-Up Follow up with: Dr. Velasquez's nurse in 2 weeks [phone] Treatment/Equipment after DC Adaptive Equipment Issued: None DIANE VELASQUEZ MD Aug 24, 2020 10:48
[2020-08-24 11:00] VITALS: BP 122/50
[2020-08-24] MEDS: HYDROcodone/APAP 7.5/325MG 1 TAB TABLET PO PRN (12:30)
--- NOTE | 2020-08-24 13:03 | DS ---
DATE OF DISCHARGE: 08/24/2020 DISCHARGE DIAGNOSES: 1. Nonfunctioning spinal cord stimulator. 2. Lateral recess stenosis at L4-L5 and L5-S1, right, with right lumbar radiculopathy. OPERATIONS PERFORMED: 1. Removal of spinal cord stimulator. 2. Hemilaminotomy with microdecompression of dura and nerve root, L4-L5 and L5-S1, right. HISTORY OF PRESENT ILLNESS: The patient is a pleasant 65-year-old man who developed intractable back and right leg pain which has been present for years. He had placement of a spinal cord stimulator, which temporarily gave him some relief, but the spinal cord stimulator became nonfunctioning. He wanted it removed. The pain had persisted despite all conservative measures, I evaluated him with myelography. On that study, there was lateral recess stenosis present at L4-L5 and L5-S1 on the right side and I recommended microdecompressive surgery. He understood the surgery and the risk and wished to proceed. HOSPITAL COURSE: He was admitted to the floor postoperatively where he has done well. He is up ambulating in the room and in the halls. Physical therapy was initiated and instruction was given to him regarding his activities. His pain is well controlled and he is in good condition to discharge home. DISCHARGE MEDICATIONS: He will resume his medications per the MRAD. DISCHARGE INSTRUCTIONS: He was instructed regarding incision care, activity restrictions and expectations for the next several weeks. He will follow up with us in 2 weeks. He understands to call with any questions or concerns. DIANE VELASQUEZ MD DR: LA NENA/nika JOB#: [id number] / [id number]
[2020-08-24] MEDS ORDERED: metFORMIN XR 500 MG TAB.ER.24H PO SCH (17:00)
--- NOTE | 2020-08-27 15:10 | PATHOLOGY ---
[facility] Accession Number: [id number] . 01 Material submitted: . vertebral column - LUMBAR DECOMPRESSION . 02 Diagnosis: Segments of fibrocartilaginous tissue and bone, lumbar decompression: - Degenerative changes of fibrocartilaginous tissue. . ([facility]:mm; 08/26/2020) [facility] 08/26/2020 1640 Local . 02 Comment: There is no evidence of an acute inflammatory process or malignancy. . ([facility]:mm; 08/26/2020) . 02 Electronically signed: . Eric Lowe MD, Pathologist NPI- [id number] . 01 Gross description: . The specimen is received in formalin, labeled "Philip Joshua, lumbar decompression". Received are multiple segments of pink-frey, gritty tissue admixed with fragments of bone measuring 2.8 x 2.0 x 0.6 cm in aggregate dimensions. The specimen is filtered and entirely submitted in cassette A1, following decalcification. ([facility]; 08/25/2020) QAC/QAC 08/25/2020 1249 Local . 02 Pathologist provided ICD-10: M51.36 . 02 CPT . 805727, [id number] Specimen Comment: A courtesy copy of this report has been sent to [phone] Specimen Comment: Report sent to Specimen Comment: A duplicate report has been generated due to demographic updates. Performed at: 01 [facility] [address], [place] [id number] MD Shiva Franco MD Phone: [phone] Performed at: 02 [facility] [address], [place] [id number] MD Eric Lowe MD Phone: [phone]
== END 2020-08-24 12:55 | disposition home or self-care (01) ==
LOC: SURG 07:13 → 4 NORTH 12:44
PROVIDERS: ADMIT Neurological Surgery; ATTEND Neurological Surgery
DX: M48.07 Spinal stenosis, lumbosacral region (principal); T85.113A Breakdown (mechanical) of implanted electronic neurostimulator, generator, initial encounter; M54.16 Radiculopathy, lumbar region; M48.061 Spinal stenosis, lumbar region without neurogenic claudication; I10 Essential (primary) hypertension; E11.9 Type 2 diabetes mellitus without complications; E21.5 Disorder of parathyroid gland, unspecified; M06.9 Rheumatoid arthritis, unspecified; Z87.891 Personal history of nicotine dependence; Z79.82 Long term (current) use of aspirin; Z79.4 Long term (current) use of insulin; Z98.890 Other specified postprocedural states; Z79.899 Other long term (current) drug therapy
CPT/HCPCS: 63047; 63048; 63662; 82962; 88304; 88311; 96374; 96376; 97116; 97162; 97530; G0378; G0379; J0330; J0690; J1100; J1815; J1885; J2250; J2270; J2370; J2704; J3010; J3490; J7030; 76000; J0171; J2405

== ENCOUNTER 2020-09-13 13:02 | Emergency (ER) | payer MEDICARE, BC, OTHER ==
[~2020-09-13] VITALS: Ht 188 cm; Wt 122.7 kg
[~2020-09-13 13:02] MED LIST changes: -BACITRACIN 50,000 UNIT in IV NORMAL SALINE 1000ML BAG 1,000 ML IRR ONE; -BUPIVACAINE-EPI 0.5%-1:200000 MPF 30 ML VIAL. INJ ONE; -EPINEPHrine VIAL 30 MG/30 ML VIAL ONE; -GELATIN SPONGE SIZE 100. ONE; -HYDROmorphone 2 MG/ML VIAL IV PRN; -IV RINGERS,LACTATED 1000ML 1,000 ML IV SCH; -KETOROLAC 60 MG/2 ML VIAL. ONE; -LIDOCAINE 1% PF 2 ML VIAL. ID PRN; -LIDOCAINE 1% PF 30 ML VIAL. ONE; -ONDANSETRON PF 4 MG/2 ML VIAL. IV PRN; -PROCHLORPERAZINE 10 MG/2 ML VIAL. IV PRN; -THROMBIN TOPICAL 20,000 UNIT SPRAY.SYRN KIT TP ONE; -fentaNYL PF VIAL 100 MCG/2 ML VIAL IV PRN
[2020-09-13] MEDS ORDERED: KETOROLAC 60 MG/2 ML VIAL. IM ONE (15:45)
[2020-09-13] MEDS ORDERED: MORPHINE SULFATE 10 MG/ML VIAL. IM ONE (15:45)
[2020-09-13 15:57] VITALS: BP 144/73
--- NOTE | 2020-09-13 16:07 | PHYS DOC ---
Past Medical History Past Medical History: Angina, Anxiety, Arthritis, CAD, Cancer, CVA, Diabetes- Type II, Hypothyroid, Vascular Disease, Other Additional Past Medical Histor: Sleep Apnea, Bladder Ca Past Surgical History: Lumbar Laminectomy, Other Additional Past Surgical Histo: Cataract Extraction bilat, NeuroStimulator x2, Bladder Ca Surgery Smoking Status: Former Smoker Alcohol Use: None General Adult EDM: Chief Complaint: MULTIPLE COMPLAINTS HPI: HPI: Patient is a 65 year old male with history of diabetes type 2, anxiety, arthritis, depression among other illnesses who presents to the ED today complaining of multiple falls after having lumbar laminectomy on August 23, 2020. Patient states he has fallen down 3 times. He states he has been seen by the neurosurgeon who told him he needs to be careful. Patient states the last time he fell down was on last week. He states is currently experiencing moderate low back pain which he has had since his surgery. Patient states he is on hydrocodone and morphine with minimal relief of his pain. Patient denies any loss of bowel/bladder function. Describes the pain as throbbing and intermittent worse on certain movements. Review of Systems: Review of Systems: Constitutional: Denies fever or chills. [] Eyes: Denies change in visual acuity. [] HENT: Denies nasal congestion or sore throat. [] Respiratory: Denies cough or shortness of breath. [] Cardiovascular: Denies chest pain or edema. [] GI: Denies abdominal pain, nausea, vomiting, bloody stools or diarrhea. [] : Denies dysuria. [] Musculoskeletal: Reports low back pain. Integument: Denies rash. [] Neurologic: Denies headache, focal weakness or sensory changes. [] Psychiatric: Denies depression or anxiety. [] Heart Score: Risk Factors: Risk Factors: DM, Current or recent (<one month) smoker, HTN, HLP, family history of CAD, obesity. Risk Scores: Score 0 - 3: 2.5% MACE over next 6 weeks - Discharge Home Score 4 - 6: 20.3% MACE over next 6 weeks - Admit for Clinical Observation Score 7 - 10: 72.7% MACE over next 6 weeks - Early Invasive Strategies Current Medications: Current Medications Medications (Trade) Dose Ordered Sig/Ousmane Start Time Stop Time Status Last Admin Dose Admin Ketorolac Tromethamine (Toradol Im) 60 mg 1X ONCE 09/13/20 15:45 09/13/20 15:46 DC 09/13/20 15:55 60 MG Morphine Sulfate (Morphine Sulfate) 5 mg 1X ONCE 09/13/20 15:45 09/13/20 15:46 DC 09/13/20 15:55 5 MG Allergies: Allergies: Allergies Coded Allergies Type Severity Reaction Last Updated Verified No Known Drug Allergies 08/18/20 No Physical Exam: PE: Constitutional: Well developed, well nourished, no acute distress, non-toxic appearance. [] HENT: Normocephalic, atraumatic, bilateral external ears normal, oropharynx moist, no oral exudates, nose normal. [] Eyes: PERRLA, EOMI, conjunctiva normal, no discharge. [] Neck: Normal range of motion, no tenderness, supple, no stridor. [] Cardiovascular:Heart rate regular rhythm, no murmur [] Lungs & Thorax: Bilateral breath sounds clear to auscultation [] Abdomen: Bowel sounds normal, soft, no tenderness, no masses, no pulsatile masses. [] Skin: Warm, dry, no erythema, no rash. [] Back: No tenderness, no CVA tenderness. [] Extremities: Surgical incision noted on the lumbar spine with no signs of infection. No tenderness, no cyanosis, no clubbing, ROM intact, no edema. [] Neurologic: Alert and oriented X 3, normal motor function, normal sensory function, no focal deficits noted. [] Psychologic: Flat affect Current Patient Data: Vital Signs: Vital Signs Date Time Temp Pulse Resp B/P (MAP) Pulse Ox O2 Delivery O2 Flow Rate FiO2 09/13/20 13:50 97.2 72 18 140/82 (101) 94 Room Air 97.2 EKG: EKG: [] Radiology/Procedures: Radiology/Procedures: [] Course & Med Decision Making: Course & Med Decision Making Pertinent Labs and Imaging studies reviewed. (See chart for details) This is a 65-year-old male patient presenting to the ED today complaining of low back pain that began August 23, 2020 after lumbar laminectomy surgery. Patient reports falling down 3 times since he had surgery. He has followed up with his own neurosurgeon who told him to be careful. Presents today complaining of ongoing pain. I spoke to Génesis ESTEVEZ for neurosurgery, she states this patient has fallen down 3 times since he had surgery. She states patient last fell down on last week, he was seen at [facility] where they did a CAT scan of his head and entire spine. He was noted to have a compression fracture. She states she ordered a lumbar brace for patient and instructed patient to be careful. She states patient has follow-up appointment set up. She states patient was also on hydrocodone and morphine for his pain. She stated patient was also given g abapentin which he refused and Lyrica which is unknown if he is taking. Patient has no cauda equina syndrome symptoms in the ED. Considering he is already had imaging from the last time he fell he was discharged home. We did give him a shot of morphine and Toradol in the ED and instructed him to continue following up with his own primary care doctor as well as neurosurgeon. Anuja Disclaimer: Dragon Disclaimer: This electronic medical record was generated, in whole or in part, using a voice recognition dictation system. Departure Departure Impression: Primary Impression: Low back pain Qualified Codes: M54.5 - Low back pain; G89.29 - Other chronic pain Additional Impression: Fall Qualified Codes: W19.XXXA - Unspecified fall, initial encounter Disposition: 01 DC HOME SELF CARE/HOMELESS Condition: STABLE Referrals: MADHU MCGUIRE MD (PCP) DIANE VELASQUEZ MD follow up as scheduled Patient Instructions: Back Pain, Adult, [id number], Fall Prevention and Home Safety Additional Instructions: You were evaluated in the emergency room for back pain. Please continue following up with your primary care doctor as well as neurosurgeon. Continue taking your pain medicine at home BRINDA TAFOYA APRN Sep 13, 2020 16:07
== END 2020-09-13 16:16 | disposition home or self-care (01) ==
LOC: ER 13:02
DX: G89.11 Acute pain due to trauma (principal); G89.29 Other chronic pain; M54.5 Low back pain; F32.9 Major depressive disorder, single episode, unspecified; F41.9 Anxiety disorder, unspecified; M19.90 Unspecified osteoarthritis, unspecified site; E11.9 Type 2 diabetes mellitus without complications; E03.9 Hypothyroidism, unspecified; I20.9 Angina pectoris, unspecified; Z85.51 Personal history of malignant neoplasm of bladder; Z90.89 Acquired absence of other organs; Z98.890 Other specified postprocedural states; Z87.891 Personal history of nicotine dependence; Z86.73 Personal history of transient ischemic attack (TIA), and cerebral infarction without residual deficits; W18.39XA Other fall on same level, initial encounter; Y93.89 Activity, other specified; Y92.89 Other specified places as the place of occurrence of the external cause; Y99.8 Other external cause status
CPT/HCPCS: 96372; 99284; J1885; J2270

== ENCOUNTER → 2021-01-14 | Outpatient (CLI) | payer MEDICARE, BC, OTHER ==
[~2021-01-14] MED LIST changes: +IOHEXOL 180 MG/ML 10 ML VIAL. IT ONE; +LIDOCAINE 1% Multi-Dose 20 ML VIAL. ID ONE
--- NOTE | 2021-01-14 17:43 | KCIC ---
Lumbar myelogram 01/14/2021 Clinical History: Low back pain which radiates down the right leg. Technique: After the risks and benefits of the procedure were explained to the patient, written infor med consent was obtained. The patient was placed prone on the fluoroscopy table and the lower back wa s prepped and draped in sterile fashion. 1% lidocaine was used as a local anesthetic. Under fluorosco pic guidance, the thecal sac of the lumbar cistern was punctured at the L2-L3 level using 25-gauge Wh itacre needle. After confirming clear CSF return, 15 cc of Omnipaque 180 were injected through the ne edle into the thecal sac of the lumbar cistern under fluoroscopic guidance. Following this the needle was removed and hemostasis achieved at the puncture site. A sterile bandage was placed on the skin p uncture site. AP, bilateral oblique, lateral and standing neutral, flexion and extension lateral digi dina radiographs of the lumbar spine were obtained. Following this the patient was taken to CT where a CT scan of the lumbar spine was performed. This will be reported separately. Following the examinat ions the patient was sent home with an instruction sheet. The patient tolerated the procedure well an d there were no immediate complications. The total fluoroscopic time for this procedure was 78 second s. 9 digital spot radiographs were obtained. Findings: Comparison is made to the patient's previous lumbar myelogram dated 07/26/2020. A left-sided neurostimulator is unchanged. Very mild S-shaped curvature of the thoracolumbar spine is noted. The patient is post kyphoplasty type procedure involving the T12 vertebral body. Very mild an terolisthesis of L4 in relation L5 is seen. Degenerative changes consisting of vertebral endplate scl erosis and minimal to mild anterior and posterior vertebral body osteophyte formation are seen throug hout the lumbar disc spaces. Mild anterior extradural defects are seen upon the contrast column at L1 -2,, L3-4, L4-5 and L5-S1. There is no evidence of complete block of contrast at any level. Degenerat giovani changes are seen involving the facet joints throughout the mid and lower lumbar disc spaces. The alignment of the lumbar vertebrae is maintained on the flexion and extension radiographs. Impression: Degenerative changes are seen throughout the lumbar spine as discussed above. Electronically signed by: Román Reinoso MD (01/14/2021 5:41 PM) [id number]
--- NOTE | 2021-01-14 17:55 | KCIC ---
CT lumbar myelogram 01/14/2021 Clinical History: Low back pain which radiates down the right leg. Technique: This study was performed after a lumbar myelogram, contiguous, 0.625 mm axial sections wer e obtained through the lumbar spine. 3 mm sagittal, coronal and axial reconstructed images were obtai carlos. One or more of the following individualized dose reduction techniques were utilized for this study: 1. Automated exposure control. 2. Adjustment of the mA and/or kV according to patient size. 3. Use of iterative reconstruction technique. Findings: Comparison is made to the patient's previous CT lumbar myelogram dated 07/26/2020.. Additio nal comparison is made to the patient's lumbar myelogram performed earlier today. The sagittal and coronal reconstructed images demonstrate minimal S-shaped curvature of the thoracolu mbar spine. Mild anterolisthesis of L4 in relation L5 and L5 in relation S1 is noted. The patient is post kyphoplasty type procedure for an old compression fracture involving the T12 vertebral body. Thi s is new since previous study. Degenerative changes consisting of varying degrees of disc space narro wing, vertebral endplate sclerosis and minimal to mild anterior and posterior vertebral body osteophy te formation are seen throughout the lumbar disc spaces. Atherosclerotic calcification of the abdomin al aorta is seen. At the L1-2 and L2-3 disc spaces there are minimal generalized disc bulges. Degenerative changes are seen involving the facet joints bilaterally. There is mild ligamentum flavum hypertrophy bilaterally. These findings do not result in significant central spinal canal or neural foraminal stenosis. At the L3-4 disc space there is a mild generalized disc bulge. Degenerative changes are seen involvin g the facet joints bilaterally. There is mild ligamentum flavum hypertrophy bilaterally. These findin gs when combined result in mild central spinal canal stenosis. No neural foraminal stenosis is seen. At the L4-5 disc space there is a mild to moderate generalized disc bulge. The patient is post right hemilaminotomy. Degenerative changes are seen involving the facet joints bilaterally. There is mild t o moderate left ligamentum flavum hypertrophy. The central spinal canal stenosis seen at this level o n the previous examination has resolved with the laminotomy. No neural foraminal stenosis is seen. At the L5-S1 disc space there is a mild generalized disc bulge. Degenerative changes are seen involvi ng the facet joints, right greater than left. These findings do not result in significant central spi nal canal stenosis. Moderate to severe right neural foraminal stenosis is seen. This has progressed s wes the previous examination. Mild left neural foraminal stenosis is noted. IMPRESSION: 1. Post right hemilaminotomy at L4-5. The central spinal canal stenosis at this level seen on the pre vious examination has resolved. 2. The changes of degenerative disc disease are seen throughout the lumbar spine. These findings resu lt in mild central spinal canal stenosis at L3-4. Moderate to severe right neural foraminal stenosis is seen at L5-S1. Mild left neural foraminal stenosis is seen at L5-S1. Electronically signed by: Román Reinoso MD (01/14/2021 5:53 PM) [id number]
== END | disposition home or self-care (01) ==
LOC: KCIC 12:37
PROVIDERS: ATTEND Neurological Surgery
DX: M51.16 Intervertebral disc disorders with radiculopathy, lumbar region (principal); M47.26 Other spondylosis with radiculopathy, lumbar region; M48.061 Spinal stenosis, lumbar region without neurogenic claudication; I25.10 Atherosclerotic heart disease of native coronary artery without angina pectoris; E78.00 Pure hypercholesterolemia, unspecified; E66.9 Obesity, unspecified; K21.9 Gastro-esophageal reflux disease without esophagitis; E11.9 Type 2 diabetes mellitus without complications; M19.90 Unspecified osteoarthritis, unspecified site; M81.0 Age-related osteoporosis without current pathological fracture; E03.9 Hypothyroidism, unspecified; F41.9 Anxiety disorder, unspecified; Z79.899 Other long term (current) drug therapy; Z79.82 Long term (current) use of aspirin; Z79.84 Long term (current) use of oral hypoglycemic drugs; Z87.891 Personal history of nicotine dependence; Z98.890 Other specified postprocedural states; Z82.49 Family history of ischemic heart disease and other diseases of the circulatory system; Z83.3 Family history of diabetes mellitus
CPT/HCPCS: 62304; 72132; J3490; Q9965

== ENCOUNTER → 2021-01-18 | Outpatient (CLI) | payer MEDICARE, BC, OTHER ==
[~2021-01-18] MED LIST changes: -IOHEXOL 180 MG/ML 10 ML VIAL. IT ONE; -LIDOCAINE 1% Multi-Dose 20 ML VIAL. ID ONE
--- NOTE | 2021-01-18 12:34 | KCIC ---
EXAM: XR SPINE ENTIRE AP AND LATERAL. HISTORY: Nonfunctioning spinal stimulator. COMPARISON: None. FINDINGS: A left flank spinal stimulator generator has leads that traverses the subcutaneous tissues dorsally to approximately T1 to correlate enter the central canal. The electrodes span C3-C7. No lead fracture is identified. Anterior cervical discectomy and fusion changes are noted at C5-C7. There is straightening of the nor mal cervical lordosis. No fractures are identified. Degenerative disc disease is moderate at C4-5 and mild at C3-4. Facet osteoarthritis is moderate to severe diffusely bilaterally. There are vertebroplasty changes at a moderate compression deformity at T12. There is mild focal kyph osis at this level. Other thoracic vertebral body heights are maintained. There is mild mid and lower thoracic degenerative disc disease. There is grade 1 anterolisthesis at L4-S1. Bilateral L5 pars interarticularis defects are suspected. Lumbar vertebral body heights are maintained. Facet osteoarthritis appears moderate to severe from L4 through S1. Degenerative disc disease is mild at L5-S1. IMPRESSION: 1. Spinal stimulator as above. 2. Bilateral L5 pars interarticularis defects. Grade 1 anterolisthesis from L4 through S1. 3. Degenerative disc disease is mild at L5-S1, moderate at C4-5 and mild at C3-4. It is mild to moder ate throughout the mid and lower thoracic spine. 4. Moderate chronic compression deformity at T12 status post vertebroplasty. Electronically signed by: Miranda Bartlett MD (01/18/2021 12:32 PM) [id number]
== END ==
LOC: KCIC 11:09
PROVIDERS: ATTEND Neurological Surgery
DX: M51.37 Other intervertebral disc degeneration, lumbosacral region (principal); M54.17 Radiculopathy, lumbosacral region; M43.8X4 Other specified deforming dorsopathies, thoracic region
CPT/HCPCS: 72082

== ENCOUNTER → 2021-02-10 | Outpatient (CLI) | payer MEDICARE, BC, OTHER ==
[~2021-02-10] MED LIST changes: +FLUT12AE IH; +FLUT16SP NS; +GABA-689 PO; +INSU100I17 SQ; +INSU100I30 SQ; +TAMS0.4C97 PO; +TRAZ150T49 PO
[2021-02-10 09:14] LABS: BASO # 0.1 x10^3/uL (0.0-0.2); BASO % 1 % (0-3); EOS # 0.2 x10^3/uL (0.0-0.7); EOS % 3 % (0-3); HEMATOCRIT 46.5 % (39.0-53.0); HEMOGLOBIN 15.6 g/dL (13.0-17.5); LYMPH # 2.4 x10^3/uL (1.0-4.8); LYMPH % 29 % (24-48); MEAN CORPUSCULAR HEMOGLOBIN 29 pg (25-35); MEAN CORPUSCULAR HGB CONC 34 g/dL (31-37); MEAN CORPUSCULAR VOLUME 86 fL (79-100); MONO # 0.6 x10^3/uL (0.0-1.1); MONO % 8 % (0-9); NEUT # 4.9 x10^3/uL (1.8-7.7); NEUT % 59 % (31-73); PLATELET COUNT 254 x10^3/uL (140-400); RED BLOOD COUNT 5.39 x10^6/uL (4.30-5.70); RED CELL DISTRIBUTION WIDTH 14.6 % (11.5-14.5); WHITE BLOOD COUNT 8.3 x10^3/uL (4.0-11.0)
--- NOTE | 2021-02-10 09:28 | EKG ---
[facility] [address] [place] [address] Test Date: 2021-02-10 Test Time: 09:25:55 Pat Name: LIZZ SIMMONS Department: Room: Gender: M Group Leader: ARIAS : 1955 Requested By: DIANE VELASQUEZ Order Number: [id number] Reading MD: Williams Holloway MD Measurements Intervals [place] Rate: 90 P: 267 PA: 156 QRS: 6 QRSD: 98 T: 16 QT: 364 QTc: 449 Interpretive Statements SINUS RHYTHM Electronically Signed On 02-16-2021 8:58:03 CDT by Williams Holloway MD
[2021-02-10 09:33] LABS: ALBUMIN 3.9 g/dL (3.4-5.0); CALCIUM 8.8 mg/dL (8.5-10.1); CREATININE 1.2 mg/dL (0.7-1.3); GFR 60.8; POTASSIUM 4.3 mmol/L (3.5-5.1); TOTAL BILIRUBIN 0.4 mg/dL (0.2-1.0); TOTAL PROTEIN 7.9 g/dL (6.4-8.2)
[2021-02-12 00:08] LABS: HEMOGLOBIN A1C 8.6 % (4.8-5.6)
== END ==
LOC: SURGPAT 08:39
PROVIDERS: ATTEND Neurological Surgery
DX: Z01.818 Encounter for other preprocedural examination (principal); T85.192D Other mechanical complication of implanted electronic neurostimulator of spinal cord electrode (lead), subsequent encounter; M48.07 Spinal stenosis, lumbosacral region; M54.17 Radiculopathy, lumbosacral region; X58.XXXD Exposure to other specified factors, subsequent encounter
CPT/HCPCS: 36415; 80053; 83036; 85025; 87641; 93005

== ENCOUNTER 2021-02-17 06:17 | Day surgery (SDC) | payer MEDICARE, BC, OTHER ==
[2021-02-10 09:18] VITALS: BP 154/90
[2021-02-11 12:01] VITALS: BP 154/90
--- NOTE | 2021-02-16 14:31 | PREOP HP ---
DATE OF SERVICE: 02/17/2021 PREOPERATIVE HISTORY AND PHYSICAL HISTORY OF PRESENT ILLNESS: The patient is having difficulty with low back pain and pain, which radiates into his right hip and right lateral thigh and leg, stopping at about the ankle. He says that in the last six months, he has fallen a couple of times, but overall feels that his balance is improving. He says that he has a constant pain in his lower back, which is worsened with walking. It improves with sitting. He is taking hydrocodone as needed. He does use a cane. He fell in 09/2020 and underwent a vertebroplasty at T12 for a compression fracture. He has had anterior and posterior surgery in the cervical spine. In 08/2020, he underwent a right-sided microdecompression at L4-L5 and L5-S1. He did well from that operation until he fell. A spinal cord stimulator in the cervical spine is in place, but the lumbar spinal cord stimulator has been removed. CURRENT MEDICATIONS: Atorvastatin, aspirin, Flexeril, diazepam, [place], insulin, levothyroxine, metformin, nitroglycerin, omeprazole, Lyrica, sertraline, tamsulosin, morphine, acetaminophen, gabapentin. PAST MEDICAL HISTORY: Arthritis, cancer, chest pain, headaches, hypertension, parathyroid disease, RA, thyroid disease, diabetes, neuropathy. PAST SURGICAL HISTORY: Hernia repair, deviated septum, cardiac cath, ACDF C5-C6, C6-C7 in 04/2018, posterior cervical decompression C3-C4, C4-C5 right in 05/2019, lumbar microdecompression at L4-L5 and L5-S1 with removal of spinal cord stimulator in 08/2020. FAMILY HISTORY: Cancer, diabetes, heart disease. SOCIAL HISTORY: Former smoker. He is employed, , does not smoke. Drinks alcohol 1-2 times per year ALLERGIES: No known drug allergies. REVIEW OF SYSTEMS: A 12-point review of systems was performed and is noncontributory except that mentioned above. PHYSICAL EXAMINATION: GENERAL: Alert, pleasant, and in no acute distress. HEENT: Head normocephalic, atraumatic. SKIN: Warm and dry. Well-healed lumbar incision. MUSCULOSKELETAL: Lumbar paraspinal muscle bulk is normal, restricted range of motion of the lumbar spine, [id number] tenderness of the lower lumbar spine with palpation, normal range of motion of the lower extremities bilaterally. EXTREMITIES: No clubbing, cyanosis or edema. NEUROLOGIC: Alert and oriented x 3. Normal recent and remote memory, strength is 5/5 in the lower extremities bilaterally. Sensory was intact to light touch in the lower extremities bilaterally. Reflexes were present and symmetric in the lower extremities bilaterally. Negative straight leg raising, normal gait. IMAGING: I reviewed a lumbar CT scan as well as a lumbar MRI scan. On that study, there are postoperative changes at L4-L5. There are also postoperative changes at L5-S1 on the right. He does have a focal area of hypertrophic bone, which is narrowing the neural foramen significantly on the right side, which is not present on the left at L5-S1. This would correspond with his right hip and lateral thigh and leg pain. ASSESSMENT AND PLAN: At this point, he says he is miserable because of hip and leg pain. I told him I was going to operate and perform a transforaminal decompression of the L5 root at L5-S1 on the right. I told him that I did not want to consider any type of instrumentation in the lower lumbar spine. He strongly wants to have cervical spinal cord stimulator removed. I felt that we could potentially accomplish this as well. We spoke about the surgery technique, risk and expected postoperative course. He understands and would like to proceed. LA NENA/AALIYAH/TIARA DR: Francisco TID: [id number] BUCK
[~2021-02-17] VITALS: Ht 188 cm; Wt 120.4 kg
[~2021-02-17 06:17] MED LIST changes: -INSU100I17 SQ; -INSU100I30 SQ; +IV RINGERS,LACTATED 1000ML 1,000 ML IV SCH; +PROCHLORPERAZINE 10 MG/2 ML VIAL. IVP PRN; +fentaNYL PF VIAL 100 MCG/2 ML VIAL IVP PRN
[2021-02-17] MEDS ORDERED: KETOROLAC 60 MG/2 ML VIAL. ONE (06:37)
[2021-02-17] MEDS ORDERED: BUPIVACAINE-EPI 0.5%-1:200000 MPF 30 ML VIAL. ONE (06:37)
[2021-02-17] MEDS ORDERED: GELATIN SPONGE SIZE 100. ONE (06:37)
[2021-02-17 06:48] VITALS: BP 127/70
[2021-02-17] MEDS ORDERED: INSU100I30 SQ (06:48)
[2021-02-17] MEDS ORDERED: INSU100I17 SQ (06:48)
[2021-02-17] MEDS ORDERED: DEXAMETHASONE SOD PHOS 4 MG/ML VIAL ONE ×2 (08:10→09:35)
[2021-02-17] MEDS ORDERED: ONDANSETRON PF 4 MG/2 ML VIAL. ONE (08:10)
[2021-02-17] MEDS ORDERED: PROPOFOL 10 MG/ML (20ML) VIAL. IV ONE ×2 (08:10→10:11)
[2021-02-17] MEDS ORDERED: LIDOCAINE 2% PF 5 ML VIAL. ONE (08:10)
[2021-02-17] MEDS ORDERED: REMIFENTANIL 2 MG VIAL. IV ONE (08:11)
[2021-02-17] MEDS ORDERED: fentaNYL PF VIAL 100 MCG/2 ML VIAL ONE (08:11)
[2021-02-17] MEDS ORDERED: SUCCINYLCHOLINE 200 MG/10 ML VIAL. ONE (08:11)
[2021-02-17] MEDS ORDERED: ROCURONIUM 50 MG/5 ML VIAL. ONE (08:11)
[2021-02-17] MEDS ORDERED: PHENYLEPHRINE 10 MG/ML VIAL. ONE (08:17)
[2021-02-17] MEDS ORDERED: PROPOFOL 100 ML IV ONE (08:21)
[2021-02-17] MEDS ORDERED: ceFAZolin SODIUM 3 GM in IV DEXTROSE 5% 100ML 100 ML IV PRN (08:45)
[2021-02-17] MEDS ORDERED: GLYCOPYRROLATE 1 MG/5 ML VIAL. ONE (09:15)
[2021-02-17] MEDS ORDERED: THROMBIN TOPICAL 20,000 UNIT SPRAY.SYRN KIT TP ONE (09:56)
[2021-02-17] MEDS ORDERED: KETAMINE HCL IN NACL, ISO-OSM 50 MG/5 ML SYRINGE ONE (10:11)
--- NOTE | 2021-02-17 10:14 | RAD ---
PQRS Compliance Statement: One or more of the following individualized dose reduction techniques were utilized for this examinat ion: 1. Automated exposure control 2. Adjustment of the mA and/or kV according to patient size 3. Use of iterative reconstruction technique CT LUMBAR SPINE WO 02/17/2021 7:03 AM Indication: Lumbar stenosis COMPARISON: CT lumbar spine 01/14/2021 TECHNIQUE: Multiple axial CT images of the lumbar spine are obtained without intravenous contrast. Co jim and sagittal reformats are provided. FINDINGS: There is 5 mm anterolisthesis of L5 on S1 with chronic L5 pars defects. There is a chronic compressio n fracture at T12 status post spinal augmentation. Minimal retropulsion of superior endplate, chronic . Vertebral body heights of the lumbar spine are maintained. No acute fracture is identified. Disc he ights are maintained. Abdominal aorta is normal in caliber with calcified atheromatous plaque. No jeny picious retroperitoneal abnormality is identified. Visualized portions of the sacrum appear intact. L1-L2: There is a circumferential disc bulge. Mild facet arthropathy.. Mild neuroforaminal stenosis, stable. No spinal canal stenosis. L2-L3: Mild disc bulge. Mild facet arthropathy. Mild bilateral neuroforaminal stenosis, stable. No si gnificant spinal canal stenosis. L3-L4: Disc is normal in configuration. Mild to moderate facet arthropathy. Moderate bilateral neurof oraminal stenosis. No spinal canal stenosis. L4-L5: There is a circumferential disc bulge. Right hemilaminectomy changes are present. No residual spinal canal stenosis. Mild right and moderate left neuroforaminal stenosis stable. L5-S1: There is a circumferential disc bulge asymmetric to the left. Moderate facet arthropathy. Mode rate left and mild right neuroforaminal stenosis. No spinal canal stenosis. IMPRESSION: Mild lumbar spondylosis as described in detail above without significant interval change since 01/15/20 21. Electronically signed by: Rosalva Reaves MD (02/17/2021 10:12 AM) [id number]
[2021-02-17] MEDS ORDERED: DEXTROSE 50% 25 GM / 50ML DISP.SYRIN. IV ONE (10:37)
[2021-02-17] MEDS ORDERED: REMIFENTANIL 1 MG VIAL. IV ONE ×2 (11:11→12:23)
[2021-02-17] MEDS ORDERED: DESFLURANE > 120 MINUTES IH ONE (12:03)
[2021-02-17] MEDS ORDERED: PROPOFOL 0 ML IV ONE (12:23)
[2021-02-17] MEDS ORDERED: PROPOFOL 50 ML IV ONE (12:23)
[2021-02-17] MEDS ORDERED: 0.9 % SODIUM CHLORIDE 20 ML VIAL. IJ ONE (12:28)
[2021-02-17] MEDS ORDERED: NEOSTIGMINE METHYLSULFATE 5 MG/5 ML SYRINGE. ONE (12:33)
[2021-02-17] MEDS ORDERED: MORPHINE SULFATE 2 MG/ML INJ. ONE (13:38)
[2021-02-17] MEDS: MORPHINE SULFATE 2 MG/ML INJ. IVP PRN ×2 (13:39→13:49)
[2021-02-17] MEDS ORDERED: HYDROmorphone 2 MG/ML VIAL ONE (13:56)
[2021-02-17] MEDS: HYDROmorphone 2 MG/ML VIAL IVP PRN ×4 (13:59→14:31)
[2021-02-17] MEDS ORDERED: CALCIUM CARBONATE 500 MG TAB.CHEW PO PRN (14:30)
[2021-02-17] MEDS ORDERED: 0.9 % SODIUM CHLORIDE 10 ML DISP.SYRIN. IV PRN (14:30)
[2021-02-17] MEDS ORDERED: POTASSIUM CL 20MEQ-0.45% NACL 1,000 ML IV SCH (14:30)
[2021-02-17] MEDS ORDERED: NALOXONE 0.4 MG/ML VIAL. IV PRN (14:30)
[2021-02-17] MEDS ORDERED: fentaNYL PF VIAL 100 MCG/2 ML VIAL IVP PRN (14:30)
[2021-02-17] MEDS ORDERED: MAGNESIUM HYDROXIDE 2,400 MG/30 ML ORAL.SUSP. PO PRN (14:30)
[2021-02-17] MEDS ORDERED: ACETAMINOPHEN 325 MG TABLET. PO PRN (14:30)
[2021-02-17] MEDS ORDERED: diphenhydrAMINE HCL 25 MG CAPSULE PO PRN (14:30)
[2021-02-17] MEDS ORDERED: DEXTROSE 50% 25 GM / 50ML DISP.SYRIN. IV PRN (14:30)
[2021-02-17] MEDS ORDERED: MAG HYDROX/ALUMINUM HYD/SIMETH 30 ML ORAL.SUSP PO PRN (14:30)
--- NOTE | 2021-02-17 14:37 | DISCH ---
DISCHARGE INSTRUCTIONS Condition on Discharge Condition on Discharge: Stable Activity After Discharge Activity Instructions for Disc: Activity as tolerated, Avoid exertion, Walk in house Bathing Instructions: Shower-keep dressing dry, No Tub Bath until see Lifting Instructions after Dis: No heavy lifting, No pulling or pushing, Do not lift >10 pounds Exercise Instruction after Dis: Progress as tolerated Driving Instructions after Dis: No driving for 2 weeks Weight Bearing Status after Di: No restrictions, Full weight bearing, As tolerated Diet after Discharge Diet after Discharge: Diabetic No Calorie Level Additional Diet Restrictions: resume home diet Diet Texture: Regular Wound Incision Care Wound/Incision Care: Ice to area for comfort, Do not change dressing Other wound/incision instructi: may remove dressing in 48 hours if dry, no soaking Wound Care Equipment: Dressings Contacting the DRJulia after DC Call your doctor for: Concerns you may have Follow-Up Follow up with: Dr. Velasquez's nurse in 2 weeks [phone] Treatment/Equipment after DC Adaptive Equipment Issued: None DIANE VELASQUEZ MD Feb 17, 2021 14:37
[2021-02-17] MEDS ORDERED: SERTRALINE 50 MG TABLET. PO SCH (15:00)
[2021-02-17] MEDS ORDERED: HYDROcodone/APAP 7.5/325MG 1 TAB TABLET PO ONE (15:00)
[2021-02-17 17:00] VITALS: BP 138/75
[2021-02-17] MEDS ORDERED: IV RINGERS,LACTATED 500ML 500 ML IV ONE (17:15)
[2021-02-17] MEDS ORDERED: NON FORMULARY ITEM (Insulin Aspart (Novolog Flexpen) 1 UNIT) SQ SCH (18:00)
[2021-02-17] MEDS ORDERED: NON FORMULARY ITEM (Insulin Degludec (Tresiba Flextouch U-100) 100 UNIT) SQ SCH (21:00)
[2021-02-17] MEDS ORDERED: DOCUSATE SODIUM 100 MG CAPSULE. PO SCH ×2 (21:00)
[2021-02-17] MEDS ORDERED: diazePAM 5 MG TABLET PO SCH (21:00)
[2021-02-17] MEDS ORDERED: traZODone 50 MG TABLET. PO SCH (21:00)
[2021-02-17] MEDS ORDERED: ATORVASTATIN CALCIUM 40 MG TABLET. PO SCH (21:00)
[2021-02-17] MEDS ORDERED: CYCLOBENZAPRINE 10 MG TABLET. PO SCH (21:00)
[2021-02-18] MEDS ORDERED: LEVOTHYROXINE 150 MCG TABLET PO SCH (06:00)
[2021-02-18] MEDS ORDERED: PANTOPRAZOLE 40 MG TABLET.DR. PO SCH (07:30)
[2021-02-18] MEDS ORDERED: metFORMIN XR 500 MG TAB.ER.24H PO SCH (08:00)
[2021-02-18] MEDS ORDERED: TAMSULOSIN 0.4 MG CAP.ER.24H. PO SCH (09:00)
[2021-02-18] MEDS ORDERED: ASPIRIN CHEWABLE 81 MG TABLET. PO SCH (09:00)
--- NOTE | 2021-02-18 16:53 | OP ---
DATE OF SURGERY: 02/17/2021 PREOPERATIVE DIAGNOSIS: Severe foraminal narrowing, L5-S1, right with severe right lumbar radiculopathy. POSTOPERATIVE DIAGNOSES: 1. Severe foraminal narrowing, L5-S1, right with severe right lumbar radiculopathy. 2. Nonfunctioning cervical spinal cord stimulator. OPERATIONS PERFORMED: 1. Removal of nonfunctioning cervical spinal cord stimulator. 2. Right L5-S1 transforaminal microdecompression of the right L5 root with BrainLAB guidance. This is a reoperation. SURGEON: Jean Claude Hutchinson M.D. SPECIMEN: Decompression. OPERATIVE INDICATIONS: The patient is a pleasant 65-year-old who in the past has undergone a right-sided hemilaminotomy at L4-L5 and L5-S1 and had done well from that until he suffered some falls and developed severe right leg pain. On imaging studies, a portion of the facet at L5-S1 was protruding into and markedly narrowing the foramen with compression of the right L5 root at L5-S1, right and I recommended after he failed conservative measures, microdecompression at this level. This surgery was somewhat complicated because he has undergone previous operation at this level, but his pain was intractable and severe and he strongly wished to go ahead. DESCRIPTION OF PROCEDURE: Following general endotracheal anesthesia, the patient was positioned prone on the Amarjit table. Thoracolumbar region prepped and draped in the standard fashion. ALPESH hose and AV impulse boots were applied for DVT prophylaxis. The microscope was draped, fluoroscopy was draped and brought into the field. Monitoring was established. Ancef 2 grams was given less than 1 hour prior to initiation of surgery. Using fluoroscopic guidance, I identified the mid thoracic entry point for the cervical spinal cord stimulator and also the battery pack location. I anesthetized the skin with 0.5% Marcaine in both these locations and made a skin incision and first removed the battery pack and then opened up the upper thoracic incision and visualized the connections between the battery pack wires and the electrodes, which extended superiorly. I freed up the electrodes. I cut the wires. I pulled the electrodes out and then I removed the wires with the battery pack. I confirmed fluoroscopically that all of the spinal cord stimulator had been removed. I irrigated copiously and I closed these incisions with absorbable sutures and skin with skin estuardo. I then with fluoroscopic guidance, opened the lumbar incision extending from L4 region down through S1. I dissected down through skin and subcutaneous tissue and I tested BrainLAB Star to the superior portion of the L4 spinous process and I initialized the BrainLAB system. I then carried the soft tissue off the spinous process of L5-S1 and carried the paraspinal muscles out laterally using a self-retaining retractor. Again, using BrainLAB guidance, I brought in the microscope and through the microscope, I drilled down through the facet gradually working down to the foramen. I exposed the foramen and visualized the exiting L5 root, which I then followed laterally. There were large spurs which came off the facet, which were markedly indenting and compressing the L5 root and as I worked, I was able to thin the bone over these and then used a 2 mm micro Kerrison, trimmed this bone away and fully decompressed the region and the L5 root moved posteriorly into much more normal position. I followed the root out and assured myself that it was quite free throughout its course. I explored carefully. I felt that I had excellent decompression at this level. I irrigated copiously. I then removed the BrainLAB Star, removed the retractor. I obtained hemostasis in the muscle and I closed the wound in layers with absorbable suture and the skin was closed with 4-0 subcuticular stitch. I felt that the surgery went very well. FRANSISCA DR: Laury TID: [id number] BUCK
--- NOTE | 2021-02-21 17:07 | PATHOLOGY ---
[facility] Accession Number: [id number] . 01 Material submitted: . vertebral column - LUMBAR DECOMPRESSION. Modifiers: LUMBAR . 01 Clinical history: . MALFUNCTION OF SPINAL CORD STIMULATOR LUMBARSTENOSIS, RADICULOPATHY RE-OPERATION TRANSFORAMINAL DECOMPRESSION L5-S1 REMOVAL OF CERVICAL SPINAL CORD STIMULATER SPINAL STENOSIS LUMBAR RADUCULOPATHY . 02 Diagnosis: Segments of fibrocartilaginous tissue and bone, lumbar decompression: - Degenerative changes of fibrocartilaginous tissue. (JPM:tyesha; 02/21/2021) P 02/21/2021 1213 Local . 02 Comment: There is no evidence of an acute inflammatory process or malignancy. (JPM:tyesha; 02/21/2021) . . 02 Electronically signed: . Eric Lowe MD, Pathologist NPI- [id number] . 01 Gross description: . The specimen is received in formalin, labeled "Philip Joshua and #1 lumbar decompression". It consists of multiple borrero irregular bony and soft tissue fragments measuring 1.9 x 1.2 x 0.3 cm in aggregate. The specimen is placed in a biopsy bag and entirely submitted in A1. Following decalcification. (MRF; 02/18/2021) MFE/MFE 02/18/2021 1819 Local . 02 Pathologist provided ICD-10: M99.73, M54.16 . 02 CPT . 990510, [id number] Specimen Comment: A courtesy copy of this report has been sent to [phone], [phone] Specimen Comment: [id number] Specimen Comment: Report sent to / DR MCGUIRE Performed at: [address], [place], [place] [id number] MD Shiva Franco MD Phone: [phone] Performed at: [address] [id number] MD Eric Lowe MD Phone: [phone]
== END 2021-02-17 17:30 | disposition home or self-care (01) ==
LOC: SURG 06:17
PROVIDERS: ATTEND Neurological Surgery
DX: M54.17 Radiculopathy, lumbosacral region (principal); M48.07 Spinal stenosis, lumbosacral region; T85.192D Other mechanical complication of implanted electronic neurostimulator of spinal cord electrode (lead), subsequent encounter; I10 Essential (primary) hypertension; E78.00 Pure hypercholesterolemia, unspecified; E03.9 Hypothyroidism, unspecified; E11.9 Type 2 diabetes mellitus without complications; I25.10 Atherosclerotic heart disease of native coronary artery without angina pectoris; E66.9 Obesity, unspecified; J45.909 Unspecified asthma, uncomplicated; Z87.891 Personal history of nicotine dependence; Z79.82 Long term (current) use of aspirin; Z79.84 Long term (current) use of oral hypoglycemic drugs; Z79.899 Other long term (current) drug therapy; Z98.890 Other specified postprocedural states; Z88.8 Allergy status to other drugs, medicaments and biological substances; Z82.49 Family history of ischemic heart disease and other diseases of the circulatory system
CPT/HCPCS: 63047; 63661; 72131; 82962; 88304; 88311; A4209; A4364; A4930; A6254; A6258; J0330; J1100; J1170; J1885; J2270; J2370; J2405; J2704; J2710; J3010; J3490; 76000; A4222; J0690